=== PATIENT | female | born 1955 | race Caucasian/White ===

== ENCOUNTER 2024-05-17 11:10 | Outpatient (AMB) | payer BC, SELFPAY ==
--- NOTE | 2024-05-17 11:36 | A.OFFPC_ITS ---
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 Required: No Allergies codeine Allergy (Unknown, Verified 05/17/24 11:36) Unknown Medication List - Last Reconciled 05/17/24 by Lotus Freed MD atorvastatin 80 mg PO DAILY diazepam (Valium) 5 mg PO BEDTIME PRN levocetirizine 5 mg PO DAILY valacyclovir (Valtrex) 1,000 mg PO DAILY Tobacco use date assessed: 05/17/24 Fall risk assessment: No Falls in past year Last assessed Fall Risk: 05/17/24 Dental Screening Dental Screen Date: 05/17/24 Did you have a dental visit in the last 12 months?: Yes Did you have a dental problem in the last 6 months where you did not have access to dental care?: No Was dental information given to patient?: Patient has dentist HPI HPI Comments History of Present Illness Details The patient is a 68 year old female with a past medical history of hyperlipidemia, anxiety, hsv, low back/hip pain presenting for follow up MSK: Low back/buttock/hip injury following axe throwing. Baseline low back pain prior. Had MRI-bilateral labral tears, lumbar DDD. Saw physiatry Dr Iqbal. Saw [facility] then [facility]. Dr Roberts though pain more from gluteus medius tendinopathy. Got prp injection with some relief. Continues prn tramadol. Recently having pain from left lower neck down arm. Only at night. Non exertional. BH: Anxiety/insomnia-On valium as needed. Been on for many years. The only thing that has afforded her relief. CV: continues lipitor for hyperlipidemia HSV: on valtrex ROS CONSTITUTIONAL: Denies weight loss, fever and chills. HEENT: Denies changes in vision and hearing. RESPIRATORY: Denies SOB and cough. CV: Denies palpitations and CP GI: Denies abdominal pain, nausea, vomiting and diarrhea. : Denies dysuria and urinary frequency. MSK: see HPI SKIN: non healing skin lesion nose NEUROLOGICAL: Denies headache PSYCHIATRIC: Denies recent changes in mood. PHYSICAL EXAM: GENERAL: Alert and oriented x 3. NAD EYES: EOMI. Anicteric. HENT: Moist mucous membranes. No scleral icterus. No cervical lymphadenopathy. LUNGS: Clear to auscultation bilaterally. CARDIOVASCULAR: Regular rate and rhythm. No murmur. No JVD. ABDOMEN: Soft, non-tender +bs EXTREMITIES: No edema. Non-tender. SKIN: Reddish rough patch nose NEUROLOGIC: No focal neurological deficits. CN II-XII grossly intact PSYCHIATRIC: Cooperative. 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 Current occupational exposures/hazards: No Cognitive needs: No Hearing needs: No Vision needs: Yes Physical exam (Primary Care) Vital Signs: Last Vital Signs Temp 98.4 F 05/17/24 11:41 Pulse 69 05/17/24 11:41 Resp 14 05/17/24 11:41 BP 124/86 05/17/24 11:41 Pulse Ox 96 05/17/24 11:41 Oxygen Delivery Method Room Air 05/17/24 11:41 BMI result Body Mass Index 28.4 Tobacco/Smoking Status: Tobacco use Status Tobacco use date assessed 05/17/24 05/17/24 11:45 Patient Tobacco Use Status Former Tobacco user 05/17/24 11:45 e-Cigarette/Vaping Use Never Used 05/17/24 11:45 Assessment and Plan Assessment & Plan (1) Skin lesion: Code(s): L98.9 - Disorder of the skin and subcutaneous tissue, unspecified Plan: started after significant sun exposure. Non healing x 2 years. Referral for evaluation/biopsy (2) Hyperlipidemia: Code(s): E78.5 - Hyperlipidemia, unspecified Qualifiers: Hyperlipidemia type: mixed hyperlipidemia Qualified Code(s): E78.2 - Mixed hyperlipidemia (3) Cervical radiculopathy: Code(s): M54.12 - Radiculopathy, cervical region (4) Lumbar degenerative disc disease: Code(s): M51.36 - Other intervertebral disc degeneration, lumbar region (5) Tendinopathy of gluteus medius: Code(s): M67.959 - Unspecified disorder of synovium and tendon, unspecified thigh Orders: Referrals Dermatology Referral L98.9 - Disorder of the skin and subcutaneous tissue, unspecified Medications: New diazepam (Valium) 10 mg (2 x 5 mg) PO BEDTIME 30 days PRN 60 tabs 0RF muscle spasm Coding Level of Care Code Est Pt Level 5 (70436) Diagnoses Skin lesion L98.9 Mixed hyperlipidemia E78.2 Hyperlipidemia type: mixed hyperlipidemia Cervical radiculopathy M54.12 Lumbar degenerative disc disease M51.36 Tendinopathy of gluteus medius M67.959 Time Spent (min) 47
[2024-05-17 11:41] VITALS: BP 124/86; PULSE 69; RESP 14; TEMP 36.9; O2SAT 96; BMI 28.4
== END 2024-05-17 12:36 | disposition home or self-care (01) ==
PROVIDERS: PCP Internal Medicine; Visit Provider Internal Medicine
DX: E78.2 Mixed hyperlipidemia (principal); L98.9 Disorder of the skin and subcutaneous tissue, unspecified; M54.12 Radiculopathy, cervical region; M51.36 Other intervertebral disc degeneration, lumbar region; M67.959 Unspecified disorder of synovium and tendon, unspecified thigh
CPT/HCPCS: 99215

== ENCOUNTER 2024-11-04 14:49 | Outpatient (AMB) | payer BC, SELFPAY ==
--- NOTE | 2024-11-04 14:53 | MHC.PC.OV ---
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 Her heart is racing and beating out of her chest. This has last for hours at times. Over this past weekend she went on a brisk walk experience this and then ended up developing chest pain and diaphoresis. She thought about going to the ER but symptoms started subsiding after she rested for a half hour. MSK: Low back/buttock/hip injury following axe throwing. Baseline low back pain prior. Had MRI-bilateral labral tears, lumbar DDD. Saw physiatry Dr Iqbal. Saw [facility] then [facility]/ortho. Dr Roberts though pain more from gluteus medius tendinopathy. Got prp injection with some relief. Continues prn tramadol. Recently having pain from left lower neck down arm. Only at night. Non exertional. Taking glucosamine, chondroiton BH: Anxiety/insomnia-On valium as needed. Been on for many years. The only thing that has afforded her relief. CV: continues lipitor for hyperlipidemia HSV: on valtrex. Needs refill Colon cancer:Had cologuard within the last 3 years Mammo: Gets at [facility]. She is due ROS see HPI PHYSICAL EXAM: GENERAL: Alert and oriented x 3. NAD EYES: EOMI. Anicteric. HENT: Moist mucous membranes. No scleral icterus. No cervical lymphadenopathy. LUNGS: Clear to auscultation bilaterally. CARDIOVASCULAR: Regular rate and rhythm. No murmur. No JVD. ABDOMEN: Soft, non-tender +bs EXTREMITIES: No edema. Non-tender. SKIN: Reddish rough patch nose NEUROLOGIC: No focal neurological deficits. CN II-XII grossly intact PSYCHIATRIC: Cooperative. 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 Current occupational exposures/hazards: No Cognitive needs: No Hearing needs: No Vision needs: Yes Questionnaire Thrive Questionnaire Date Thrive assessed: 10/30/24 I am a: Patient What is your living situation today?: I have a steady place to live Within the past 12 months, did the food you bought not last and you didn't have the money to get more?: Never true Within the past 12 months, did you worry whether your food would run out before you got money to buy more?: Never true Do you have trouble paying for medicines?: No Do you have trouble getting transportation to medical appointments?: No Do you have trouble paying your heating and electricity bill?: No Do you have trouble taking care of your child, family member or friend?: No Do you have trouble with day-to-day activities such as bathing, preparing meals, shopping, managing finances, etc.?: No Are you currently unemployed and looking for a job?: No Are you interested in more education?: No Please select the resources that you would like help with: None Currently or been in a relationship where the following occur: No concerns reported THRIVE Score: 0 AUDIT C Alcohol Use Questionnaire (AUDIT-C) 1. How often do you have a drink containing alcohol?: Never 3. How often do you have six or more drinks on one occasion?: Never Total Score: 0 TING-7 AMB Questionnaire TING-7 Date TING - 7 assessed: 11/04/24 Feeling nervous, anxious, or on edge: 1 = Several days Not being able to stop or control worryin = Several days Worrying too much about different things: 1 = Several days Trouble relaxin = Not at all Being so restless that it is hard to sit still: 0 = Not at all Becoming easily annoyed or irritable: 1 = Several days Feeling afraid as if something awful might happen: 0 = Not at all Total TING-7 score (0-4 normal; 5-9 mild; 10-14 moderate; 15-21 severe): 4 Source: Developed by Drs. Armando Carmona, Marce Elliott, Flo Emery and colleagues, with an educational spencer from [employer]. TING-7 Assessment Billing TING-7 Assessment Tool: TING-7 Assessment 06919 Physical exam (Primary Care) Vital Signs: Last Vital Signs Pulse 70 11/04/24 15:00 BP 112/78 11/04/24 15:00 Pulse Ox 99 11/04/24 15:00 Oxygen Delivery Method Room Air 11/04/24 15:00 BMI result Body Mass Index 33.4 Tobacco/Smoking Status: Tobacco use Status Tobacco use date assessed 05/17/24 11/04/24 15:06 Patient Tobacco Use Status Former Tobacco user 11/04/24 15:06 e-Cigarette/Vaping Use Never Used 11/04/24 15:06 Thrive Assessment: Date of Thrive Assessment Date Thrive assessed 10/30/24 11/04/24 15:06 Currently or been in a relationship where the following occur: No concerns reported Coding Level of Care Code Est Pt Prev Care >65y(82923) Diagnoses Physical exam Z00.00 Chest pain R07.9 Palpitations R00.2 Degeneration of intervertebral disc of lumbar region with discogenic back pain and lower extremity pain M51.362 Disc-related pain type: discogenic back pain and lower extremity pain Additional Codes TING-7 Assessment Billing - TING-7 Assessment Tool: TING-7 Assessment 27700 ([id number]) Assessment & Plan Assessment & Plan (1) Physical exam: Code(s): Z00.00 - Encounter for general adult medical examination without abnormal findings Category: Medical Plan: Preventive measures reviewed Mammogram order given to patient Check cologuard date (2) Chest pain: Code(s): R07.9 - Chest pain, unspecified Category: Medical Plan: Exertional chest pain-stress testing ordered Referral to cardiology (3) Palpitations: Code(s): R00.2 - Palpitations Category: Medical Plan: EKG performed Monitor ordered x 48 hours Referral to cardiology Stress testing (4) Lumbar degenerative disc disease: Code(s): M51.36 - Other intervertebral disc degeneration, lumbar region Category: Medical Qualifiers: Disc-related pain type: discogenic back pain and lower extremity pain Qualified Code(s): M51.362 - Other intervertebral disc degeneration, lumbar region with discogenic back pain and lower extremity pain Plan: stable on current medications Orders: Orders AMB EKG-In Office 11/04/24 R00.2 - Palpitations, R07.9 - Chest pain, unspecified ECG holter monitor 48 hour 11/04/24 R00.2 - Palpitations, R07.9 - Chest pain, unspecified NM cardiolite stress test 11/04/24 R00.2 - Palpitations, R07.9 - Chest pain, unspecified MM screening mammo BI 11/04/24 Z12.31 - Encounter for screening mammogram for malignant neoplasm of breast Referrals Cardiology Referral R00.2 - Palpitations, R07.9 - Chest pain, unspecified Medications: New valacyclovir (Valtrex) 1,000 mg PO DAILY 90 tabs 3RF metoprolol tartrate 12.5 mg (1/2 x 25 mg) PO BID PRN 30 tabs 0RF tachycardia
[2024-11-04 15:00] VITALS: BP 112/78; PULSE 70; O2SAT 99; BMI 33.4
== END 2024-11-04 16:03 | disposition home or self-care (01) ==
PROVIDERS: PCP Internal Medicine; Visit Provider Internal Medicine
DX: Z00.00 Encounter for general adult medical examination without abnormal findings (principal); R07.9 Chest pain, unspecified; R00.2 Palpitations; M51.362 Other intervertebral disc degeneration, lumbar region with discogenic back pain and lower extremity pain

== ENCOUNTER → 2024-11-25 09:06 | Outpatient (REF) | payer BC, SELFPAY ==
--- NOTE | 2024-11-25 09:15 | CA_ITS ---
Acquisition Time: 2024-11-25 09:31:57 Total Exercise Time: 00:08:11 Test Indications: CHEST PAIN Medications: METROP[place]OL Protocol: JOSIAH Max HR: 114 BPM 75% of Pred: 152 BPM Max BP: 152/090 mmHG Max Work Load: 6.3 METS Exercise Stress Test with exercise 8 mins 11 secs of Josiah Protocol, required modified speed to 2mph, able to increase incline to 14%, achieving 73% MPHR, without any chest discomfort, reported moderate SOB, with isolated PAC and isolated PVC, with baseline hypertension - normal response to exercise. Without EKG changes. In recovery, breathing returned to baseline. Recommend further testing with Pharmacologic Nuclear Stress Test with Lexiscan. Test reviewed with Dr. Fitzpatrick. Referred By: Lotus Freed Overread By: Bg Olson
== END ==
LOC: HO.CARD 09:06
PROVIDERS: PCP Internal Medicine; Visit Provider Internal Medicine
DX: R07.9 Chest pain, unspecified (principal); R00.2 Palpitations
CPT/HCPCS: 93017; 93225

== ENCOUNTER → 2024-11-25 09:15 | Outpatient (BNV) | payer BC, SELFPAY | PROVIDERS: PCP Internal Medicine | DX: R06.02 Shortness of breath (principal); I49.1 Atrial premature depolarization; I49.3 Ventricular premature depolarization | CPT/HCPCS: 93016; 93018 ==

== ENCOUNTER 2024-12-02 10:22 | Outpatient (AMB) | payer BC, SELFPAY ==
--- NOTE | 2024-12-02 10:31 | MHC.PC.OV ---
Vital Signs 12/02/24 11:12 Height 5 ft 6.54 in Weight 206 lb 8 oz BMI 32.8 BP 132/88 Blood Pressure Location Lt brachial Position Sitting Pulse 64 Pulse Source Pulse Oximeter Pulse Oximetry (%) 99 Oxygen Delivery Method Room Air Intake Visit Reasons: Pre-OP /Eye surgery Intake Note: Pre op cataract Odd Ticket Clerk Required: No Allergies codeine Allergy (Unknown, Verified 12/02/24 11:12) Unknown Tobacco use date assessed: 12/02/24 Dental Screening Dental Screen Date: 05/17/24 HPI HPI Comments History of Present Illness Details The patient is a 68 year old female with a past medical history of hyperlipidemia, anxiety, hsv, low back/hip pain presenting for physical exam Upcoming cataract surgery-12/16/23-left, 12/30/23-right. In October she was having episodes of tachycardia associated with shortness of breath for ~3 weeks. Has not had any recent significant episodes. Her heart is racing and beating out of her chest. This has last for hours at times. Over this past weekend she went on a brisk walk experience this and then ended up developing chest pain and diaphoresis. She thought about going to the ER but symptoms started subsiding after she rested for a half hour. She had EKG performed and was sent for stress test. The stress test did not show any signs of ischemia but was suboptimal as patient couldnt reach max target HR. She is active walks, gardens, climbs multiple flights of stairs. No known sleep apnea No copd, asthma or jeanine METS>4 No diabetes or kidney disease MSK: Low back/buttock/hip injury following axe throwing. Baseline low back pain prior. Had MRI-bilateral labral tears, lumbar DDD. Saw physiatry Dr Iqbal. Saw [facility] then [facility]. Dr Roberts though pain more from gluteus medius tendinopathy. Got prp injection with some relief. Continues prn tramadol. Recently having pain from left lower neck down arm. Only at night. Non exertional. Taking glucosamine, chondroiton BH: Anxiety/insomnia-On valium as needed. Been on for many years. The only thing that has afforded her relief. HSV: on valtrex. Needs refill Colon cancer:Had cologuard within the last 3 years Mammo: Gets at [facility]. She is due ROS see HPI PHYSICAL EXAM: GENERAL: Alert and oriented x 3. NAD EYES: EOMI. Anicteric. HENT: Moist mucous membranes. No scleral icterus. No cervical lymphadenopathy. LUNGS: Clear to auscultation bilaterally. CARDIOVASCULAR: Regular rate and rhythm. No murmur. No JVD. ABDOMEN: Soft, non-tender +bs EXTREMITIES: No edema. Non-tender. SKIN: Reddish rough patch nose NEUROLOGIC: No focal neurological deficits. CN II-XII grossly intact PSYCHIATRIC: Cooperative. 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 Current occupational exposures/hazards: No Cognitive needs: No Hearing needs: No Vision needs: Yes Questionnaire Thrive Questionnaire Date Thrive assessed: 11/26/24 I am a: Patient What is your living situation today?: I have a steady place to live Within the past 12 months, did the food you bought not last and you didn't have the money to get more?: Never true Within the past 12 months, did you worry whether your food would run out before you got money to buy more?: Never true Do you have trouble paying for medicines?: No Do you have trouble getting transportation to medical appointments?: No Do you have trouble paying your heating and electricity bill?: No Do you have trouble taking care of your child, family member or friend?: No Do you have trouble with day-to-day activities such as bathing, preparing meals, shopping, managing finances, etc.?: No Are you currently unemployed and looking for a job?: No Are you interested in more education?: No Please select the resources that you would like help with: None Currently or been in a relationship where the following occur: No concerns reported THRIVE Score: 0 AUDIT C Alcohol Use Questionnaire (AUDIT-C) 1. How often do you have a drink containing alcohol?: Never 3. How often do you have six or more drinks on one occasion?: Never Total Score: 0 TING-7 AMB Questionnaire TING-7 Date TING - 7 assessed: 11/04/24 Feeling nervous, anxious, or on edge: 0 = Not at all Not being able to stop or control worryin = Not at all Worrying too much about different things: 0 = Not at all Trouble relaxin = Not at all Being so restless that it is hard to sit still: 0 = Not at all Becoming easily annoyed or irritable: 1 = Several days Feeling afraid as if something awful might happen: 0 = Not at all Total TING-7 score (0-4 normal; 5-9 mild; 10-14 moderate; 15-21 severe): 1 Source: Developed by Drs. Armando Carmona, Marce Elliott, Flo Emery and colleagues, with an educational spencer from [employer]. Physical exam (Primary Care) Vital Signs: Last Vital Signs Pulse 64 12/02/24 11:12 BP 132/88 12/02/24 11:12 Pulse Ox 99 12/02/24 11:12 Oxygen Delivery Method Room Air 12/02/24 11:12 BMI result Body Mass Index 32.8 Tobacco/Smoking Status: Tobacco use Status Tobacco use date assessed 12/02/24 12/02/24 11:13 Patient Tobacco Use Status Former Tobacco user 12/02/24 10:32 e-Cigarette/Vaping Use Never Used 12/02/24 10:32 Thrive Assessment: Date of Thrive Assessment Date Thrive assessed 11/26/24 12/02/24 10:32 Currently or been in a relationship where the following occur: No concerns reported Coding Level of Care Code Est Pt Level 4 (37857) Diagnoses Preoperative cardiovascular examination Z01.810 Assessment & Plan Assessment & Plan (1) Preoperative cardiovascular examination: Code(s): Z01.810 - Encounter for preprocedural cardiovascular examination Category: Medical Plan: Patient is average risk for low risk surgery She was experiencing some chest discomfort shortness of breath and palpitations around the holiday. I am going to send her for pharmacologic stress test but surgery does not have to be held back for this
[2024-12-02 11:12] VITALS: BP 132/88; PULSE 64; O2SAT 99; BMI 32.8
== END 2024-12-02 11:41 | disposition home or self-care (01) ==
PROVIDERS: PCP Internal Medicine; Visit Provider Internal Medicine
DX: Z01.810 Encounter for preprocedural cardiovascular examination (principal)

== ENCOUNTER → 2024-12-02 10:22 | Outpatient (BNVA) | payer BC, SELFPAY | PROVIDERS: PCP Internal Medicine; Visit Provider Internal Medicine ==

== ENCOUNTER 2024-12-16 07:28 | Day surgery (SDC) | payer BC, SELFPAY ==
[2024-12-12 07:03] VITALS: BMI 33.2
--- NOTE | 2024-12-12 13:29 | P.CONAN_ITS ---
Documented by User: Makayla Gillespie NP 12/12/24 13:30 HPI - Anesthesia Eval Consult details Narrative: 69yo F for Left Cataract Extraction IOL Insertion No previous cataract on record Pending Nuc Stress but not prohibative of surgery per PCP clear. (Exercise stress without ischemic changes, but did not meet max HR) [facility] Active Problems Active Problems: All Active Problems Preoperative cardiovascular examination (Acute) Physical exam (Acute) Chest pain (Acute) Palpitations (Acute) Vision impairment (Acute) Cataract (Acute) Tendinopathy of gluteus medius (Acute) Lumbar degenerative disc disease (Acute) Cervical radiculopathy (Acute) Hyperlipidemia (Acute) Skin lesion (Acute) Past Medical History Medical History Heart palpitations Asthma Back pain HSV (herpes simplex virus) infection Anxiety Social History Social History Housing: Condominium Are you a primary pediatric critical care nurse to a significant other at home: No Do you presently have visiting nurse or other home services: No Alcohol intake: current Alcohol intake frequency: a few times a month Patient Tobacco Use Status: Former Tobacco user Tobacco use type: Cigarette Cigarette Packs Per Day: 2 Years Smoked: 15 e-Cigarette/Vaping Use: Never Used Second Hand Smoke Exposure: No Use of substances other than those prescribed or required for medical reasons: No Are you DNR?: No Advance Directives: No Advance Directives Information Provided: Yes Advance Directives on File: No Patient : No : No service: No Current occupational status: employed and retired 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 Current occupational exposures/hazards: No Cognitive needs: No Hearing needs: No Vision needs: Yes Meds Allergies Allergy/AdvReac Type Severity Reaction Status Date / Time codeine Allergy Severe Stomach Verified 12/16/24 08:55 Upset Home Medications ?Medication ?Instructions ?Recorded ?Confirmed ?Last Taken ?Type levocetirizine 5 mg tablet 5 mg PO DAILY 05/17/24 05/17/24 Unknown History cholecalciferol (vitamin D3) PO 11/04/24 Unknown History glucosamine-chondroitin 1 tab PO DAILY 11/04/24 12/12/24 Unknown History Exam Height,Weight and Vital Signs: Height 5 ft 6 in Weight 93.44 kg Assessment and Plan Assessment Anesthesia Assessment: Chart Reviewed Documented by User: Merry Burgos MD 12/16/24 09:10 PMFSH Past Medical History Medical History Heart palpitations Asthma Back pain HSV (herpes simplex virus) infection Anxiety Family History Family history of problems with anesthesia: No Surgical History History of Problems with Anesthesia: No Social History Social History [facility]: [facility] Are you a primary pediatric critical care nurse to a significant other at home: No Do you presently have visiting nurse or other home services: No Alcohol intake: current Alcohol intake frequency: a few times a month Patient Tobacco Use Status: Former Tobacco user Tobacco use type: Cigarette Cigarette Packs Per Day: 2 Years Smoked: 15 e-Cigarette/Vaping Use: Never Used Second Hand Smoke Exposure: No Use of substances other than those prescribed or required for medical reasons: No Are you DNR?: No Advance Directives: No Advance Directives Information Provided: Yes Advance Directives on File: No Patient : No : No service: No Current occupational status: employed and retired 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 Current occupational exposures/hazards: No Cognitive needs: No Hearing needs: No Vision needs: Yes Meds Allergies Allergy/AdvReac Type Severity Reaction Status Date / Time codeine Allergy Severe Stomach Verified 12/16/24 08:55 Upset Home Medications ?Medication ?Instructions ?Recorded ?Confirmed ?Last Taken ?Type levocetirizine 5 mg tablet 5 mg PO DAILY 05/17/24 05/17/24 Unknown History cholecalciferol (vitamin D3) PO 11/04/24 Unknown History glucosamine-chondroitin 1 tab PO DAILY 11/04/24 12/12/24 Unknown History Exam Airway Mallampati Class: II TM Dist: >3cm Lungs: cta Assessment and Plan Assessment Anesthesia Assessment: Anesthesia Plan Discussed Final Anesthetic Review Family History of Problems with Anesthesia: No History of Problems with Anesthesia: No NPO: Yes ASA Class: II Final Preanesthetic Review: No Changes in Pt Med Stat, Meds/Allgs Chart Reviewed, Consent Obtained/Reviewed and Anes Risks/Benef Reviewed Patient Risk: Low Procedure Risk: Low Anesthetic Plan Anesthetic Plan: MAC: Disposition: Standard PACU
[2024-12-16] MEDS: Tetracaine HCl/PF 0.5% Oph Sol 4 ML DROPS 1 DROP EYE-LEFT (09:00)
[2024-12-16] MEDS: Tropicamide 1 % Ophth Sol 3 ML BTL 1 DROP EYE-LEFT ×3 (09:02→09:10)
[2024-12-16] MEDS: Cyclopentolate 1 % Ophth Sol 2 ML DRPBTL 1 DROP EYE-LEFT ×3 (09:02→09:09)
[2024-12-16] MEDS: Ketorolac Tromethamine 0.5% Op 10 ML DROPS 1 DROP EYE-LEFT ×3 (09:03→09:10)
[2024-12-16] MEDS: Phenylephrine HCL 2.5% Oph SoL 2 ML BOTTLE 1 DROP EYE-LEFT ×3 (09:03→09:10)
[2024-12-16] MEDS: Lactated Ringers 500 ML 50 ML IV (09:11)
--- NOTE | 2024-12-16 09:37 | MHC.SHP ---
Pre-Procedural Eval Section A - 24 Hr Update-Section A only Date of Service: 12/16/24 The patient is an INPATIENT: No Changes since office visit: No Cold of Flu in the past 2 weeks, No New Medical Problems, No Changes in Medication and No Patient answered all questions The patient has been examined within 24 hours of the surgical procedure. The History & Physical has been completed within 30 days and I have reviewed it.: Yes Section B - Complete if H&P > 30 days Chief Complaint: Age-related nuclear cataract, left eye Allergies: Allergies Allergy/AdvReac Type Severity Reaction Status Date / Time codeine Allergy Severe Stomach Verified 12/16/24 08:55 Upset Plan Diagnosis/Plan: Unchanged I have reviewed the history and physical and performed a pertinent physical examination on my patient. No changes have occurred unless specified. Time Spent With Patient Time: Total time managing care of this patient today ____ minutes.
--- NOTE | 2024-12-16 09:38 | HO.PNOPHT ---
Ophthalmology Procedure Procedure Date of Service: 12/16/24 Ophthalmology Viscoelastic: Healon Duet Dual Pack Pro Ophthalmology Lenses: IOL Acrysof MP - [id number] (19) Procedure Notes: PREOPERATIVE DIAGNOSIS: Decreased visual acuity left eye secondary to cataract POSTOPERATIVE DIAGNOSIS: Same PROCEDURE: Left cataract extraction with intraocular lens insertion SURGEON: Mitch Bradford M.D. ANESTHESIA: Topical/MAC ESTIMATED BLOOD LOSS: None COMPLICATIONS: None After obtaining informed consent, the patient was brought to the operation room suite and placed in the supine position. After adequate sedation per anesthesia, topical drops of Tetracaine were given to the left eye. The eye was then prepped and draped in the usual sterile fashion. The operating room microscope was then positioned over the operative eye and a lid speculum placed. A paracentesis was created. Viscoelastic was then instilled into the anterior chamber. A three plane incision was then created temporally, utilizing a 2.85 mm keratome. Capsulotomy forceps were then utilized to create a circular tear capsulotomy. Hydrodissection and hydrodelineation were carried out until adequate mobilization of the nucleus occurred. Phacoemulsification was then utilized to remove the dense central nucleus followed by removal of the cortical material utilizing the automated aspiration irrigation unit. Viscoat elastic was instilled into the posterior capsular bag followed by placement of a posterior chamber intraocular lens without difficulty. The residual Viscoat elastic was then removed utilizing the automated IA machine. The wound was check and found to be watertight. The patient tolerated the procedure well and the lid speculum was removed. Intracameral injection of Vigamox 0.1 mL followed by a subtenon injection of Kenalog-40 0.2 mL were administered. The patient will be seen in the a.m.
[2024-12-16 10:04] VITALS: BP 155/86; PULSE 62; RESP 16; TEMP 36.1; O2SAT 97
== END 2024-12-16 10:07 | disposition home or self-care (01) ==
PROVIDERS: PCP Internal Medicine; Visit Provider Ophthalmology
PROC: (CPT 66985; principal; 2024-12-16 10:00)
DX: H25.12 Age-related nuclear cataract, left eye (principal); H54.7 Unspecified visual loss; Z83.511 Family history of glaucoma; H35.09 Other intraretinal microvascular abnormalities; H18.413 Arcus senilis, bilateral; J45.909 Unspecified asthma, uncomplicated; E78.5 Hyperlipidemia, unspecified; R00.2 Palpitations; F41.9 Anxiety disorder, unspecified; Z79.899 Other long term (current) drug therapy; Z88.5 Allergy status to narcotic agent; Z87.891 Personal history of nicotine dependence
CPT/HCPCS: 66984; J2250; J3301; V2630

== ENCOUNTER 2024-12-30 07:34 | Day surgery (SDC) | payer BC, SELFPAY ==
[2024-12-12 07:34] VITALS: BMI 33.2
--- NOTE | 2024-12-26 13:07 | HO.ANESPROP2 ---
Documented by User: Makayla Gillespie NP 12/26/24 13:07 HPI - Anesthesia Eval Consult details Narrative: 69yo F for Right Cataract Extraction IOL Insertion Left eye 12/16/24: Midaz 3 PMFSH Active Problems Active Problems: All Active Problems Abnormal stress test (Acute) Preoperative cardiovascular examination (Acute) Physical exam (Acute) Chest pain (Acute) Palpitations (Acute) Vision impairment (Acute) Cataract (Acute) Tendinopathy of gluteus medius (Acute) Lumbar degenerative disc disease (Acute) Cervical radiculopathy (Acute) Hyperlipidemia (Acute) Skin lesion (Acute) Past Medical History Medical History Cataract Heart palpitations Asthma Back pain HSV (herpes simplex virus) infection Anxiety Family History Family history of problems with anesthesia: No Surgical History Surgical History Hx of left cataract extraction (12/16/24) History of Problems with Anesthesia: No Social History Social History Housing: [facility] Are you a primary acute care registered nurse to a significant other at home: No Do you presently have visiting nurse or other home services: No Alcohol intake: current Alcohol intake frequency: a few times a month Patient Tobacco Use Status: Former Tobacco user Tobacco use type: Cigarette Cigarette Packs Per Day: 2 Years Smoked: 15 e-Cigarette/Vaping Use: Never Used Second Hand Smoke Exposure: No Are you DNR?: No Advance Directives: No Advance Directives Information Provided: Yes Advance Directives on File: No Recently lost weight without trying: No Eating poorly because of decreased appetite: No Nutrition Risks: No Nutritional Risk Patient : No : No service: No Current occupational status: employed and retired 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 Current occupational exposures/hazards: No Cognitive needs: No Hearing needs: No Vision needs: Yes Meds Allergies Allergy/AdvReac Type Severity Reaction Status Date / Time codeine Allergy Severe Stomach Verified 12/30/24 08:35 Upset Home Medications ?Medication ?Instructions ?Recorded ?Confirmed ?Last Taken ?Type levocetirizine 5 mg tablet 5 mg PO DAILY 05/17/24 05/17/24 Unknown History cholecalciferol (vitamin D3) PO 11/04/24 Unknown History glucosamine-chondroitin 1 tab PO DAILY 11/04/24 12/12/24 Unknown History Exam Height,Weight and Vital Signs: Height 5 ft 6 in Weight 93.44 kg Assessment and Plan Assessment Anesthesia Assessment: Chart Reviewed Final Anesthetic Review Family History of Problems with Anesthesia: No History of Problems with Anesthesia: No Documented by User: Kandy Leon MD 12/30/24 09:31 [facility] Past Medical History Medical History Cataract Heart palpitations Asthma Back pain HSV (herpes simplex virus) infection Anxiety Surgical History Surgical History Hx of left cataract extraction (12/16/24) Social History Social History Housing: Condominium Are you a primary acute care registered nurse to a significant other at home: No Do you presently have visiting nurse or other home services: No Alcohol intake: current Alcohol intake frequency: a few times a month Patient Tobacco Use Status: Former Tobacco user Tobacco use type: Cigarette Cigarette Packs Per Day: 2 Years Smoked: 15 e-Cigarette/Vaping Use: Never Used Second Hand Smoke Exposure: No Are you DNR?: No Advance Directives: No Advance Directives Information Provided: Yes Advance Directives on File: No Recently lost weight without trying: No Eating poorly because of decreased appetite: No Nutrition Risks: No Nutritional Risk Patient : No : No service: No 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 occupational status: employed and retired 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 Current occupational exposures/hazards: No Cognitive needs: No Hearing needs: No Vision needs: Yes Meds Allergies Allergy/AdvReac Type Severity Reaction Status Date / Time codeine Allergy Severe Stomach Verified 12/30/24 08:35 Upset Home Medications ?Medication ?Instructions ?Recorded ?Confirmed ?Last Taken ?Type levocetirizine 5 mg tablet 5 mg PO DAILY 05/17/24 05/17/24 Unknown History cholecalciferol (vitamin D3) PO 11/04/24 Unknown History glucosamine-chondroitin 1 tab PO DAILY 11/04/24 12/12/24 Unknown History Exam Airway Mallampati Class: II TM Dist: >3cm Neck ROM: Full Loose/Missing/Broken Teeth: No Heart: RRR Lungs: CTA Assessment and Plan Assessment Anesthesia Assessment: Anesthesia Plan Discussed Final Anesthetic Review NPO: Yes ASA Class: II Final Preanesthetic Review: Meds/Allgs Chart Reviewed, Consent Obtained/Reviewed and Anes Risks/Benef Reviewed Patient Risk: Low Procedure Risk: Low Anesthetic Plan Anesthetic Plan: MAC: Disposition: Standard PACU
--- OUTSIDE RECORDS SUMMARY | 2024-12-30 07:36 | XMS_ITS | Clinical Summary ---
Author Organization [address] [place] [address] [place] [phone] Phone Care Team Providers Care Business Intelligence Reporting Analyst Name Role Phone Lotus Freed MD Primary Care Provider Allergies Active Allergy Reactions Criticality Noted Date Comments Codeine Nausea And Vomiting High 09/01/2016 Latex 09/01/2016 Medications atorvastatin (LIPITOR) 80 mg tablet Take 1 Tab by mouth daily. 1 Active diazePAM (VALIUM) 5 mg tablet Take 1 Tab by mouth daily as needed for Anxiety. 1 Active levocetirizine (XYZAL) 5 mg tablet Take 1 Tab by mouth daily as needed for Allergies (allergy symptoms). 0 Active sulindac (CLINORIL) 200 mg tablet TAKE 1 TABLET BY MOUTH TWICE A DAY WITH FOOD OR MILK 9 Active valACYclovir (VALTREX) 1 gram tablet Take 1 Tab by mouth daily. 0 Active ergocalciferol (VITAMIN D-2) 1,250 mcg (50,000 unit) capsule Take 1 capsule by mouth once a week. 9 Active Hospital, Clinic, or Other Facility Administered Medication Ordered Dose Route Frequency Start Date End Date Status TC-99M tetrofosmin P radio-isotope injection 10.3 millicurie 10.3 millicurie IV Once in imaging 12/24/2024 12/24/2024 Ende d TC-99M tetrofosmin P radio-isotope injection 29.3 millicurie 29.3 millicurie IV Once in imaging 12/24/2024 12/24/2024 Ende d regadenoson (LEXISCAN) injection 0.4 mg 0.4 mg IV Once in imaging 12/24/2024 12/24/2024 End ed aminophylline injection 75 mg 75 mg IV Once in imaging 12/24/2024 12/24/2024 Ende d Active Problems Problem Noted Date Diagnosed Date Elevated BP without diagnosis of hypertension Cyst of left kidney 05/01/2017 Overview (12/18/2024): Noted on MRI 01/2017, future imaging ordered for 07/2017 Insomnia 11/03/2016 Depression 09/01/2016 HSV infection 09/01/2016 Hypercholesteremia 09/01/2016 Urinary incontinence 09/01/2016 Encounters Date Type Department Care Team Description 12/24/2024 12:00 PM EST Ancillary Procedure [facility] [address] [facility] [address] [place] [id number] Chest pain; Abnormal EKG; Abnormal result of other cardiovascular function study from Last 3 Months Immunizations Name Administration Dates Next Due Influenza trivalent, with pr eservative (Fluzone; Afluria) 6mo and older 07/29/2019 Surgical History Surgery Date Site/Laterality Comments OTHER SURGICAL HISTORY PROCEDURE: MO ANTERIOR COLPORRAPHY RPR CYSTOCELE W/CYSTO; COMMENT: x 2 OOPHORECTOMY PROCEDURE: HISTORICAL OOPHORECTOMY OTHER SURGICAL HISTORY PROCEDURE: MO REPAIR RECTOCELE SEPARATE PROCEDURE OTHER SURGICAL HISTORY PROCEDURE: HISTORICAL VAGINAL HYSTERECTOMY WITH BSO Medical History Medical History Date Comments Depression 09/01/2016 DX:Depression Urinary incontinence 09/01/2016 DX:Urinary incontinence HSV infection 09/01/2016 DX:HSV infection Hypercholesteremia 09/01/2016 DX:Hyperchole steremia Insomnia 11/03/2016 DX:Insomnia Family History Medical History Relation Name Comments No Known Problems Daughter No Known Problems Father No Known Problems Maternal Grandfather No Known Problems Maternal Grandmother No Known Problems Mother No Known Problems Other No Known Problems Paternal Grandfather No Known Problems Paternal Grandmother No Known Problems Sister Breast cancer Neg Hx Relation Name Status Comments Daughter Father Maternal Grandfather Maternal Grandmother Mother Other Paternal Grandfather Paternal Grandmother Sister Social History Tobacco Use Types Packs/Day Years Used Date Smoking Tobacco: Former Cigarettes Q uit: 09/01/2008 Smokeless Tobacco: Never Alcohol Use Standard Drinks/Week Comments No 0 (1 standard drink = 0.6 oz pur e alcohol) Comments Unknown Sex and Gender Information Value Date Recorded Sex Assigned at Not on file Legal Sex Female 3:21 PM EST Gender Identity Not on file Sexual Orientation Not on file Obstetrics History Last Filed Vital Signs Vital Sign Reading Time Taken Comments Blood Pressure - - Pulse - - Temperature - - Respiratory Rate - - Oxygen Saturation - - Inhaled Oxygen Concentration - - Weight 93 kg (205 lb) 12/24/2024 12:11 PM EST Height 170.2 cm (5' 7 ) 12/24/2024 12:11 PM EST Body Mass Index 32.11 12/24/2024 12:11 PM EST Plan of Treatment Health Maintenance Due Date Last Done Comments Pneumococcal Vaccine: 50+ Years (1 of 2 - PCV) 1962 Zoster Vaccines (1 of 2) 2006 RSV Immunization Patients 60+ Years Old (1 - Risk 60-74 years 1-dose series) 2016 Breast Cancer Screening 05/13/2021 05/13/20 19, 03/17/2018, 03/06/2017 COVID-19 Vaccine ( season) 2024 10/28/2021, 02/26/2021, 02/04/2021 Influenza Vaccine (#1) 2024 , 07/29/2019, 08/28/2018, Additional history exists Cholesterol Screening (Lipid Panel) 12/17/2024 10/03/2019 Colorectal Cancer Screening: Colonoscopy 12/17/2024 04/20/2012 Depression Screening 12/17/2024 Falls Risk Assessment 12/17/2024 Osteoporosis Screening (Bone Density Screening) 12/17/2024 Social Influencers of Health Screening 12/17/2024 DTaP,Tdap,and Td Vaccines (3 - Td or Tdap) 08/03/2025 08/03/2015, 04/24/2009 Hepatitis C Screening Completed 11/03/2016 HIB Vaccines Aged Out No longer eligi ble based on patient's age to complete this topic HPV Vaccines Aged Out No longer eligi ble based on patient's age to complete this topic Hepatitis A Vaccines Aged Out No long er eligible based on patient's age to complete this topic Hepatitis B Vaccines Aged Out No long er eligible based on patient's age to complete this topic IPV Vaccines Aged Out No longer eligi ble based on patient's age to complete this topic MMR Vaccines Aged Out No longer eligi ble based on patient's age to complete this topic Meningococcal ACWY Vaccine Aged Out N o longer eligible based on patient's age to complete this topic RSV Immunization Patients Under 20 months Aged Out No longer eligible based on patient's age to complete this topic Varicella Vaccines Aged Out No longer eligible based on patient's age to complete this topic Procedures Procedure Name Priority Date/Time Associated Diagnosis Comments NM LEXISCAN STRESS TEST W/ MYOCARDIAL PERFUSION Routine 12/24/2024 2:42 PM EST Chest pain Abnormal EKG Abnormal result of other cardiovascular function study LIPID PANEL Routine 10/03/2019 SCR MAMMO BI INCL CAD Routine 05/13/2019 9:08 AM EDT Encounter for screening mammogram for malignant neoplasm of breast HEPATITIS C SCREENING Routine 11/03/2016 COLONOSCOPY Routine 04/20/2012 from Last 3 Months or Most Recently Relevant to Health Maintenance Results * NM LEXISCAN STRESS TEST W/ MYOCARDIAL PERFUSION (12/24/2024 2:42 PM EST) Exercise/inject ion duration (min) 0 CV PACS STRESS Exercise/inject ion duration (sec) 52 CV PACS STRESS Peak SBP 160 mmHg CV PACS STRESS Peak DBP 90 mmHg CV PACS STRESS Peak HR 116 bpm CV PACS STRESS Baseline HR 81 bpm CV PACS STRESS Baseline SBP 164 mmHg CV PACS STRESS Baseline DBP 100 mmHg CV PACS STRESS Estimated workload 1.7 METS CV PACS STRESS Percent HR 76 % CV PACS STRESS Rate Pressure Product 18,560.0 mmHg*bpm CV PACS STRESS Target HR 129 bpm CV PACS STRESS TID 1.15 CV PACS STRESS Nuc Stress EF 63 % CV PAC S STRESS Nuc Rest EF 58 % CV PACS STRESS BSA 2.1 m[address] PACS STRESS [address] Depression (mm) 0 mm CV PACS STRESS Anatomical Region Laterality Modality Nuclear Medicine 12/24/2024 1:03 PM EST 12/24/2024 1:34 PM EST Impressions 12/25/2024 5:42 PM EST 1. ??Abnormal pharmacological nuclear stress test. 2. Symptoms: No chest pain during the regadenoson infusion 3. Stress ECG: No ischemic ECG changes with the regadenoson infusion, in the setting of an abnormal baseline 4. Myocardial perfusion imaging: - Myocardial perfusion imaging revealed a small in size and very mild in intensity reversible perfusion defect in the basal anterolateral wall, suggestive of ischemia. -No evidence of fixed perfusion defects to suggest the presence of an infarct. 5. TID was normal at 1.15. 6. Gated images revealed normal LV wall motion and thickening; with a normal LV systolic function (LVEF 58%). 7. ??There is evidence of coronary artery calcification in the LAD which was noted on the CT scan images obtained for attenuation correction. Narrative 12/25/2024 5:42 PM EST Stress Findings A pharmacological stress test was performed using regadenoson, 0.4 mg IV over 10-15 seconds, followed by radiopharmacological injection 10 seconds post infusion. Total stress time was 0 min and 52 sec. The patient reached the end of the protocol. Low level exercise was used during pharmacological stress test. Reversal medication aminophylline and 75 mg given at minute 2 of recovery. Blood pressure demonstrated a normal response to regadenoson but was elevated at rest- patient anxious. Heart rate demonstrated a normal response. The patient reported dizziness and headaches during the stress test which resolved after aminophylline given. ECG The ECG shows normal sinus rhythm. Non-specific T with abnormalities noted at baseline. There were no arrhythmias during stress. There is no significant ST segment changes during stress, in the setting of an abnormal baseline. There were no arrhythmias during recovery. No significant changes in the setting of an abnormal baseline. Nuclear Study Quality Study technique: MPI, SPECT, multi, rest and stress, 1 day. Overall image quality is good. CT attenuation correction was utilized. No radiopharmaceutical dose was extravasated. The time from injection to rest imaging is 30 mins. The time from injection to stress imaging is 40 mins. Perfusion Defect Conclusion There is no evidence of transient ischemic dilation (TID). Stress Function Comments Left ventricular systolic function post-stress is normal. Stress ejection fraction is 63%. Rest Function Comments Left ventricular function at rest was normal. Resting ejection fraction was 58%. Stress Combined Conclusion SCAN FINDINGS: Nuclear imaging of the left ventricle reveals normal cavity size at rest with no change with stress imaging. Myocardial perfusion imaging of the left ventricle revealed a small in size and very mild in intensity reversible perfusion defect in the basal anterolateral wall. No fixed perfusion defects. Gated SPECT imaging was performed which demonstrated normal LV function and thickening with a calculated LVEF of 58% CT Findings There is evidence of coronary artery calcification in the LAD which was noted on the CT scan images obtained for attenuation correction. Perfusion Scoring Resting Summed Score: 0 Percent Normal: 0.00% The left ventricular perfusion is normal. Perfusion Scoring Stress Summed Score: 1 Percent Normal: 1.47% Mild count reduction in the following segments: basal anterolateral. All other segments are normal. Perfusion Scores: SRS Score: 0 Percentage Abnormal: 0.00% Perfusion Scores: SSS Score: 1 Percentage Abnormal: 1.47% Perfusion Scores: SDS Score: 1 Percentage Abnormal: 1.47% Lotus Freed MD CV STRESS PROCEDURES Final Res ult * (ABNORMAL) Lipid panel (10/03/2019) LDL/HDL Ratio 2 0 - 4 Triglycerides 99 0 - 150 mg/dL Cholesterol 254(A) 0 - 200 mg/dL HDL 113 >=40 mg/dL LDL Cholesterol 122(A) 0 - 100 mg/dL Blood Venous blood specimen / Unknown Historical Provider LAB BLOOD ORDERABLES Sana l Result * SCR MAMMO BI INCL CAD (05/13/2019 9:08 AM EDT) Anatomical Region Laterality Modality Radiographic Julieta ging 03/17/2018 8:16 AM EDT Narrative 05/13/2019 11:03 AM EDT This is a summary report. The complete report is available in the patient's medical record. If you cannot access the medical record, please contact the sending organization for a detailed fax or copy. Full field digital screening mammography, reviewed with CAD and compared to previous. ??The breasts are composed of fatty and fibroglandular tissue. ??No suspicious mass, architectural distortion or suspicious calcifications are identified. IMPRESSION: : No mammographic evidence of malignancy. BIRADS 1-Negative; N. 5 year breast cancer risk assessment 1.2 % Lifetime breast cancer risk assessment 5.7 % Breast cancer risk category Low (<15%) Procedure Note Kenia Davidson MD - 11/08/2022 This is a summary report. The complete report is available in thepatient's medical record. If you cannot access the medical record, pleasecontact the sending organization for a detailed fax or copy. Full field digital screening mammography, reviewed with CAD and comparedto previous. The breasts are composed of fatty and fibroglandular tissue.No suspicious mass, architectural distortion or suspicious calcificationsare identified. IMPRESSION: : No mammographic evidence of malignancy. BIRADS 1-Negative; N. 5 year breast cancer risk assessment 1.2 % Lifetime breast cancer risk assessment 5.7 % Breast cancer risk category Low (<15%) Rita Carlson MD IMG XR PROCEDURES Final Result * Hepatitis C Screening (11/03/2016) Hepatitis C Screening abstracted Historical Provider HEALTH MAINTENANCE Final Result * Colonoscopy (04/20/2012) Colonoscopy no interpretation , abstracted Comment:per pt Anatomical Region Laterality Modality Other [facility] Provider HEALTH MAINTENANCE Final Result from Last 3 Months or Most Recently Relevant to Health Maintenance Insurance MEDICARE [facility] Care Teams Business Intelligence Reporting Analyst Relationship Specialty Start Date End Date Lotus Freed MD PCP - General Endocrinology 12/24/24
--- OUTSIDE RECORDS SUMMARY | 2024-12-30 07:36 | XMS_ITS | Encounter Summary ---
Author Organization [facility] Address [id number] [place] [id number] Care Team Providers Care Program Management Specialist Name Role Phone Lotus Freed MD Primary Care Provider [phone] Reason for Visit * Cardiac Stress Testing (Routine) - Closed Specialty Diagnoses / Procedures Referred By Contac t Referred To Contact Cardiology Diagnoses Chest pain Abnormal EKG Abnormal result of other cardiovascular function study Procedures Exercise nuclear stress test with myocardial perfusion NJ MYOCARDIAL PERFUSION IMAGING TOMOGRAPHIC MULTI STUDIES AT REST OR STRESS NJ MYOCARDIAL PERFUSION IMAGING TOMOGRAPHIC SINGLE STUDY AT REST OR STRESS NJ CARDIOVASCULAR STRESS TEST GLOBAL NJ CV TMST/BIKE MAX/SUBMAX CONTINUOUS ECG MON/PHARM STRESS SUPVSR ONLY NJ CV STRESS TEST/BIKE CONT ECG MON/PHARM STRESS INTERP & REPORT ONLY NJ TEST STRESS CARDIOVASCULAR TRACING ONLY Lotus Freed MD 57 [facility] [address] [place] [address] Phone: tel: fax: [facility] - [facility] [address] [address] Phone: tel: fax: Referral ID Status Reason Start Date Expiration Date Visits Re quested Visits Authorized [id number] Closed 12/18/2024 02/15/2025 1 1 Encounter Details Date Type Department Care Team (Latest Contact Info) Description 12/24/2024 12:00 PM EST Ancillary Procedure [facility] - [facility] [address] [address] Chest pain; Abnormal EKG; Abnormal result of other cardiovascular function study Social History Tobacco Use Types Packs/Day Years [...] on file Sexual Orientation Not on file documented as of this encounter Last Filed Vital Signs Vital Sign Reading Time Taken Comments Blood Pressure - - Pulse - - Temperature - - Respiratory Rate - - Oxygen Saturation - - Inhaled Oxygen Concentration - - Weight 93 kg (205 lb) 12/24/2024 12:11 PM EST Height 170.2 cm (5' 7 ) 12/24/2024 12:11 PM EST Body Mass Index 32.11 12/24/2024 12:11 PM EST documented in this encounter Plan of Treatment Not on file documented as of this encounter Procedures Procedure Name Priority Date/Time Associated Diagnosis Comments NM LEXISCAN STRESS TEST W/ MYOCARDIAL PERFUSION Routine 12/24/2024 2:42 PM EST Chest pain Abnormal EKG Abnormal result of other cardiovascular function study documented in this encounter Results * NM LEXISCAN STRESS TEST W/ [...] Scores: SDS Score: 1 Percentage Abnormal: 1.47% us Lotus Freed MD CV STRESS PROCEDURES Final Res ult documented in this encounter Visit Diagnoses Diagnosis Chest pain Unspecified chest pain Abnormal EKG Nonspecific abnormal electrocardiogram (ECG) (EKG) Abnormal result of other cardiovascular function study documented in this encounter Administered Medications Inactive Administered Medications - up to 3 most recent administrations Medication Order MAR Action Action Date Dose Rate Site aminophylline injection 75 mg 75 mg, intravenous, Once in imaging, Starting on Mon12/24/24 at 1335, For 1 dose Given 12/24/2024 1:35 PM EST 75 mg regadenoson (LEXISCAN) injection 0.4 mg 0.4 mg, intravenous, Once in imaging, Starting on Mon12/24/24 at 1330, For 1 dose Given 12/24/2024 1:43 PM EST 0.4 mg TC-99M tetrofosmin P radio-isotope injection 10.3 millicurie 10.3 millicurie, intravenous, Once in imaging, Starting on Mon12/24/24 at 1230, For 1 dose Given 12/24/2024 12:20 PM EST 10.3 millicuries TC-99M tetrofosmin P radio-isotope injection 29.3 millicurie 29.3 millicurie, intravenous, Once in imaging, Starting on Mon12/24/24 at 1330, For 1 dose Given 12/24/2024 1:25 PM EST 29.3 millicuries documented in this encounter Care Teams Program Management Specialist Relationship Specialty Start Date End Date Lotus Freed MD PCP - General Endocrinology 12/24/24 documented as of this encounter
[2024-12-30 08:47] VITALS: BP 141/95; PULSE 64; RESP 16; TEMP 36.5; O2SAT 95
[2024-12-30] MEDS: Tetracaine HCl/PF 0.5% Oph Sol 4 ML DROPS 1 DROP EYE-RIGHT (08:52)
[2024-12-30] MEDS: Cyclopentolate 1 % Ophth Sol 2 ML DRPBTL 1 DROP EYE-RIGHT ×3 (08:53→09:09)
[2024-12-30] MEDS: Tropicamide 1 % Ophth Sol 3 ML BTL 1 DROP EYE-RIGHT ×3 (08:55→09:11)
[2024-12-30] MEDS: Ketorolac Tromethamine 0.5% Op 5 ML DROPS 1 DROP EYE-RIGHT ×3 (08:57→09:13)
[2024-12-30] MEDS: Phenylephrine HCL 2.5% Oph SoL 2 ML BOTTLE 1 DROP EYE-RIGHT ×3 (08:59→09:15)
[2024-12-30] MEDS: Lactated Ringers 500 ML 50 ML IV (09:01)
--- NOTE | 2024-12-30 09:28 | P.PCNO_ITS ---
Ophthalmology Procedure Procedure Date of Service: 12/30/24 Ophthalmology Viscoelastic: Healon Duet Dual Pack Pro Ophthalmology Lenses: IOL Acrysof MP - [id number] (19.5) Procedure Notes: PREOPERATIVE DIAGNOSIS: Decreased visual acuity right eye secondary to cataract POSTOPERATIVE DIAGNOSIS: Same PROCEDURE: Right cataract extraction with intraocular lens insertion SURGEON: Mitch Bradford M.D. ANESTHESIA: Topical/MAC ESTIMATED BLOOD LOSS: None COMPLICATIONS: None After obtaining informed consent, the patient was brought to the operating room suite and placed in the supine position. After adequate sedation per anesthesia, topical drops of Tetracaine were given to the right eye. The eye was then prepped and draped in the usual sterile fashion. The operating room microscope was then positioned over the operative eye and a lid speculum placed. A paracentesis was created. Viscoelastic was then instilled into the anterior chamber. A three plane incision was then created temporally, utilizing a 2.85 mm keratome. Capsulotomy forceps were then utilized to create a circular tear capsulotomy. Hydrodissection and hydrodelineation were carried out until adequate mobilization of the nucleus occurred. Phacoemulsification was then utilized to remove the dense central nu cleus followed by removal of the cortical material utilizing the automated aspiration irrigation unit. Viscoelastic was instilled into the posterior capsular bag followed by placement of a posterior chamber intraocular lens without difficulty. The residual Viscoelastic was then removed utilizing the automated IA machine. The wound was checked and found to be watertight. The patient tolerated the procedure well and the lid speculum was removed. Intracameral injection of Vigamox 0.1 mL followed by a subtenon injection of Kenalog-40 0.2 mL were administered. The patient will be seen in the a.m.
--- NOTE | 2024-12-30 09:28 | MHC.SHP ---
Pre-Procedural Eval Section A - 24 Hr Update-Section A only Date of Service: 12/30/24 The patient is an INPATIENT: No Changes since office visit: No Cold of Flu in the past 2 weeks, No New Medical Problems, No Changes in Medication and No Patient answered all questions The patient has been examined within 24 hours of the surgical procedure. The History & Physical has been completed within 30 days and I have reviewed it.: Yes Section B - Complete if H&P > 30 days Chief Complaint: Age-related nuclear cataract, right eye Allergies: Allergies Allergy/AdvReac Type Severity Reaction Status Date / Time codeine Allergy Severe Stomach Verified 12/30/24 08:35 Upset Plan Diagnosis/Plan: Unchanged I have reviewed the history and physical and performed a pertinent physical examination on my patient. No changes have occurred unless specified. Time Spent With Patient Time: Total time managing care of this patient today ____ minutes.
[2024-12-30 09:52] VITALS: BP 140/97; PULSE 63; RESP 18; TEMP 36.6; O2SAT 99
== END 2024-12-30 09:58 | disposition home or self-care (01) ==
PROVIDERS: PCP Internal Medicine; Visit Provider Ophthalmology
PROC: (CPT 66985; principal; 2024-12-30 10:00)
DX: H25.11 Age-related nuclear cataract, right eye (principal); H54.7 Unspecified visual loss; H35.09 Other intraretinal microvascular abnormalities; H18.413 Arcus senilis, bilateral; Z83.511 Family history of glaucoma; Z83.518 Family history of other specified eye disorder; Z88.5 Allergy status to narcotic agent; Z87.891 Personal history of nicotine dependence; Z79.899 Other long term (current) drug therapy
CPT/HCPCS: 66984; J2250; J3301; V2630

== ENCOUNTER 2025-01-22 14:26 | Outpatient (REF) | payer BC, SELFPAY ==
--- OUTSIDE RECORDS SUMMARY | 2025-01-22 17:21 | XMS_ITS | Clinical Summary ---
Author Organization [address] [place] [address] [place] [phone] Phone Care Team Providers Care Fan Mail Clerk Name Role Phone Lotus Freed MD Primary Care Provider [phone] Allergies Active Allergy Reactions Criticality Noted Date [...] 12/24/2024 12:00 PM EST Ancillary Procedure [facility] - [facility] [address] [facility] [place] [address] [place] [address] Chest pain; Abnormal EKG; Abnormal result of other cardiovascular function study from Last 3 Months Immunizations Name Administration Dates Next Due Influenza trivalent, with pr eservative (Fluzone; Afluria) 6mo and older 07/29/2019 Surgical History Surgery Date Site/Laterality Comments OTHER SURGICAL HISTORY PROCEDURE: [place] ANTERIOR COLPORRAPHY RPR CYSTOCELE W/CYSTO; COMMENT: x 2 OOPHORECTOMY PROCEDURE: HISTORICAL OOPHORECTOMY OTHER SURGICAL HISTORY PROCEDURE: [place] REPAIR RECTOCELE SEPARATE PROCEDURE OTHER SURGICAL HISTORY [...] 50+ Years (1 of 2 - PCV) 1975 Zoster Vaccines (1 of 2) 2006 RSV [...] patient's age to complete this topic Meningococcal B Vacine Aged Out No lo nger eligible based on patient's age to complete [...] C Screening (11/03/2016) Hepatitis C Screening abstracted Result [facility] Provider HEALTH MAINTENANCE Final Result * Colonoscopy (04/20/2012) Colonoscopy no interpretation , abstracted Comment:per pt Anatomical Region Laterality Modality Other [facility] Provider HEALTH MAINTENANCE Final Result from Last 3 Months or Most Recently Relevant to Health Maintenance Insurance MEDICARE [facility] Care Teams Fan Mail Clerk Relationship Specialty Start Date End Date Lotus Freed MD PCP - General Endocrinology 12/24/24
--- OUTSIDE RECORDS SUMMARY | 2025-01-22 17:21 | XMS_ITS | Encounter Summary ---
Author Organization [facility] Address [address] [place] [address] Care Team Providers Care Police Detective Name Role Phone Lotus Freed MD Primary Care Provider [phone] Reason for Visit * Cardiac Stress Testing [...] CARDIOVASCULAR TRACING ONLY Lotus Freed MD 57 [facility] [address] [place] [address] Phone: tel: fax: [facility] - [facility] [address] [address] Phone: tel: fax: Referral ID Status Reason Start Date Expiration Date Visits Re quested Visits Authorized [id number] Closed 12/18/2024 02/15/2025 1 1 Encounter Details Date Type Department Care Team (Latest Contact Info) Description 12/24/2024 12:00 PM EST Ancillary Procedure [facility] - [facility] [address] [address] Chest pain; Abnormal EKG; Abnormal [...] millicuries documented in this encounter Care Teams Police Detective Relationship Specialty Start Date End Date Lotus Freed MD PCP - General Endocrinology 12/24/24 documented as of this encounter
== END 2025-01-22 14:27 | disposition home or self-care (01) ==
LOC: HO.MAMMO 14:26
PROVIDERS: PCP Internal Medicine; Visit Provider Internal Medicine
DX: Z12.31 Encounter for screening mammogram for malignant neoplasm of breast (principal)
CPT/HCPCS: 77063; 77067

== ENCOUNTER → 2025-01-22 15:00 | Outpatient (BNV) | payer BC, SELFPAY | PROVIDERS: PCP Internal Medicine; Visit Provider Internal Medicine | DX: Z12.31 Encounter for screening mammogram for malignant neoplasm of breast (principal) | CPT/HCPCS: 77063; 77067 ==

== ENCOUNTER 2025-02-10 12:13 | Outpatient (AMB) | payer BC, SELFPAY ==
--- NOTE | 2025-02-10 12:31 | A.OFFVIS_ITS ---
Vital Signs 02/10/25 12:35 Height 5 ft 7 in Weight 207 lb 3.752 oz BMI 32.5 BP 148/80 H Blood Pressure Location Lt brachial Position Sitting Pulse 61 Pulse Source Monitor Intake Visit Reasons: INFORMATION TECHNOLOGY SPECIALIST/ Lotus Stu/abn stress test Allergies codeine Allergy (Severe, Verified 12/30/24 08:35) Stomach Upset Medication List - Last Reconciled 02/10/25 by Myles Fitzpatrick MD atorvastatin 80 mg PO DAILY cholecalciferol (vitamin D3) PO diazepam (Valium) 10 mg (2 x 5 mg) PO BEDTIME PRN 30 days glucosamine-chondroitin 1 tab PO DAILY levocetirizine 5 mg PO DAILY metoprolol tartrate 12.5 mg (1/2 x 25 mg) PO BID PRN tramadol 50 mg PO Q8H PRN valacyclovir (Valtrex) 1,000 mg PO DAILY HPI Comments Details: Danette has been referred for evaluation of an abnormal stress test. It seems that she was having episodes of palpitations and left arm numbness. However, she did not have any clear angina. No previous history of coronary disease or m yocardial infarction. The initial episodes of profound palpitations where she was highly symptomatic have resolved completely but she still gets some intermittent episodes where she gets brief fluttering. Not clear if it is an atrial arrhythmia like atrial fibrillation. Any case, she underwent an ETT in [place] and following that she underwent a pharmacological stress test at [facility]. Reported to be abnormal and hence she is referred here. It seems that she has gained a lot of weight in the last few months. Otherwise, as mentioned about does not have any clear-cut angina. Nonspecific left arm numbness which can be present any time but mostly when she is lying down at nighttime. That sounds rather neurological. [facility] Medical History Cataract Heart palpitations Asthma Back pain HSV (herpes simplex virus) infection Anxiety Surgical History Hx of left cataract extraction (12/16/24) Family History (Updated 02/10/25 @ 13:00 by Myles Fitzpatrick MD) Father Hx of CABG Social History Housing: Condominium Are you a primary laboratory animal caretaker to a significant other at home: No Do you presently have visiting nurse or other home services: No Alcohol intake: current Alcohol intake frequency: a few times a month Patient Tobacco Use Status: Former Tobacco user Tobacco use type: Cigarette Cigarette Packs Per Day: 2 Years Smoked: 15 e-Cigarette/Vaping Use: Never Used Second Hand Smoke Exposure: No service: No Current occupational status: employed and retired 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 Current occupational exposures/hazards: No Cognitive needs: No Hearing needs: No Vision needs: Yes Review of Systems Const Denies weakness ENT Denies dizziness Card Reports chest pain, Denies chest pain with activity, Denies syncope, Denies rapid heart rate, Denies pedal edema, Denies edema, Denies leg edema, Denies lightheadedness, Reports palpitations, Denies dyspnea and Denies orthopnea Resp Denies cough and Denies dyspnea GI Denies hematochezia and Denies change in stool character Musc Denies abnormal gait, Denies muscle cramps, Denies muscle weakness, Denies numbness, Denies radiating pain into limb and Denies tingling Neuro Denies abnormal gait, Denies dizziness, Denies syncope, Denies numbness, Denies tingling and Denies weakness Endo Reports palpitations Physical Exam Vital Signs: Last Vital Signs Pulse 61 02/10/25 12:35 BP 148/80 H 02/10/25 12:35 BMI result Body Mass Index 32.5 Const General: comfortable and no acute distress Orientation/consciousness: patient oriented x3 HEENT Other: Unremarkable Head: Yes normal to inspection Neck Neck: Yes normal visual inspection Chest Chest palpation & inspection: normal inspection of the chest Resp Auscultation: clear to auscultation bilaterally Cardio Palpation: normal PMI Heart sounds: S1 normal heart sound present, S2 normal heart sound present, no gallops, no murmurs and no rubs GI Palpation (GI): Soft to palpation Back/Spine/Pelvis Other: unremarkable Skin General skin exam: no rashes or lesions noted Neuro General: patient oriented x3 Extrem General: Yes normal to inspection Psych Mental Status: mental status grossly normal Office Procedures EKG Details: EKG with underlying sinus rhythm at 61/Min; sinus arrhythmias; nonspecific ST-[place]; [place] [id number], Complete Assessment & Plan Assessment & Plan (1) Abnormal stress test: Code(s): R94.39 - Abnormal result of other cardiovascular function study Category: Medical (2) Palpitations: Code(s): R00.2 - Palpitations Category: Medical (3) Atherosclerotic cardiovascular disease: Code(s): I25.10 - Atherosclerotic heart disease of lumbee coronary artery without angina pectoris Category: Medical Plan Cardiac studies reviewed. EKG with nonspecific ST-T changes as above. In the stress test, patient was able to reach 6.3 METS on Brian protocol. Reached only 73% of maximum predicted heart rate. However, no angina at that workload. Had reported shortness of breath and had isolated PACs/PVCs. No EKG evidence of ischemia. In the pharmacological stress perfusion imaging study, small size, very mild intensity reversible defect in the basal anterolateral wall. Stress LVEF 63%. Resting LVEF 58%. LAD calcification on the CAT scan images. Holter for 42 hours shows underlying sinus rhythm with occasional PACs. Overall, palpitations of uncertain nature. Possible atrial arrhythmias. We will require a longer term monitor for about 14 days. Also get an echocardiogram for cardiac function assessment. With regard to the abnormal stress test findings, we will proceed with coronary CTA for further evaluation. She does not have any overt angina and could have just stable coronary artery disease. She is already on statins. Otherwise, gradual weight loss will be immensely helpful. We will follow her up in a few weeks' time once the above completed. In the interim, if any acute issues like angina or palpitations, advised to seek emergency help. Orders: Orders ECG 14 day holter monitor Today R00.2 - Palpitations CT Cardiac Coronary Angio Today I25.10 - Atherosclerotic heart disease of lumbee coronary artery without angina pectoris, R94.39 - Abnormal result of other cardiovascular function study CA echo transthoracic complete Today I25.10 - Atherosclerotic heart disease of lum[place] coronary artery without angina pectoris, R94.39 - Abnormal result of other cardiovascular function study Basic Metabolic Panel Today I25.10 - Atherosclerotic heart disease of lumbee coronary artery without angina pectoris, R94.39 - Abnormal result of other cardiovascular function study Coding Level of Care Code New Pt Level 4 (33040) Complex EM visit Add On G2211 Diagnoses Abnormal stress test R94.39 Palpitations R00.2 Atherosclerotic cardiovascular disease I25.10 CPT Codes EKG - CPT: 12652-[id number], Complete ([id number])
[2025-02-10 12:35] VITALS: BP 148/80; PULSE 61; BMI 32.5
== END 2025-02-10 14:18 | disposition home or self-care (01) ==
LOC: HO.HCS 12:14
PROVIDERS: PCP Internal Medicine; Visit Provider Internal Medicine
DX: R94.39 Abnormal result of other cardiovascular function study (principal); R00.2 Palpitations; I25.10 Atherosclerotic heart disease of native coronary artery without angina pectoris
CPT/HCPCS: 93010; 99204

== ENCOUNTER → 2025-02-10 12:13 | Outpatient (BNVA) | payer BC, SELFPAY | PROVIDERS: PCP Internal Medicine; Visit Provider Internal Medicine | DX: I25.10 Atherosclerotic heart disease of native coronary artery without angina pectoris (principal); R94.39 Abnormal result of other cardiovascular function study; R00.2 Palpitations | CPT/HCPCS: 93005 ==

== ENCOUNTER 2025-02-18 15:02 | Outpatient (REF) | payer BC, SELFPAY ==
[2025-02-18 17:02] LABS: Anion Gap 11 (12-20); Blood Urea Nitrogen 11 mg/dL (9-16); Calcium 9.8 mg/dL (8.4-10.2); Carbon Dioxide 26 mmol/L (22-29); Chloride 109 mmol/L (96-108); Estimated Glomerular Filt Rate > 60; Glucose Random 92 mg/dL (60-115); Potassium 3.9 mmol/L (3.3-5.1); Sodium 142 mmol/L (135-145)
--- OUTSIDE RECORDS SUMMARY | 2025-02-18 17:57 | XMS_ITS | Encounter Summary ---
Author Organization [facility] Address [address] [place] [address] Care Team Providers Care Hairspring Fabrication Supervisor Name Role Phone Lotus Peraza MD Primary Care Provider Unavaila ble Reason for Visit * Reason Onset Date Comments radiology 05/03/2017 Xray Encounter Details Date Type Department Care Team Description 05/03/[address] [address] Lotus Peraza MD radiology (Xray) Social History Tobacco Use Types Packs/Day Years Used Date Smoking Tobacco: Former Cigarettes 40 Q uit: 09/01/2008 Alcohol Use Standard Drinks/Week Comments No 0 (1 standard drink = 0.6 oz pur e alcohol) Sex Assigned at Date Recorded Not on file documented as of this encounter Miscellaneous Notes * Telephone Encounter - Liana Maddox - 05/03/2017 11:12 AM EDT Images sent to [facility] 05/03/17k * Telephone Encounter - Ty Albarado - 05/03/2017 10:38 AM EDT Patient has and appointment, please send Xray image from 12/03/2016 of hip and MRI image of back form 02/04/2017 to [facility] documented in this encounter Plan of Treatment Not on file documented as of this encounter Visit Diagnoses Not on filedocumented in this encounter Care Teams Hairspring Fabrication Supervisor Relationship Specialty Start Date End Date Lotus Peraza MD PCP - General Internal Medicine 07/28/16 documented as of this encounter
--- OUTSIDE RECORDS SUMMARY | 2025-02-18 17:57 | XMS_ITS | Encounter Summary ---
Author Organization [facility] Address [address] [place] [address] Care Team Providers Care Life Scientists Name Role Phone Lotus Peraza MD Primary Care Provider Reji dean Encounter Details Date Type Department Care Team Description 01/06/2020 Orders Only Medicine/Pediatrics - [address] [phone] Lotus Peraza MD Social History Tobacco Use Types Packs/Day Years Used Date Smoking Tobacco: Former Cigarettes 40 Q uit: 09/01/2008 Smokeless Tobacco: Never Alcohol Use Standard Drinks/Week Comments No 0 (1 standard drink = 0.6 oz pur e alcohol) Sex Assigned at Date Recorded Not on file documented as of this encounter Plan of Treatment Not on file documented as of this encounter Visit Diagnoses Not on filedocumented in this encounter Care Teams Life Scientists Relationship Specialty Start Date End Date Lotus Peraza MD PCP - General Internal Medicine 07/28/16 documented as of this encounter
--- OUTSIDE RECORDS SUMMARY | 2025-02-18 17:57 | XMS_ITS | Encounter Summary ---
Author Organization [facility] Address [address] [place] [address] Care Team Providers Care Secretary Of State Name Role Phone Lotus Peraza MD Primary Care Provider Reji dean Encounter Details Date Type Department Care Team Description 04/20/2017 Oracle R12 Developer Report Medical Records [address] [place] [address] Abstract, Provider Social History Tobacco Use Types Packs/Day Years [...] on filedocumented in this encounter Care Teams Secretary Of State Relationship Specialty Start Date End Date Lotus Peraza MD PCP - General Internal Medicine 07/28/16 documented as of this encounter
--- OUTSIDE RECORDS SUMMARY | 2025-02-18 17:57 | XMS_ITS | Encounter Summary ---
Author Organization [facility] Address [address] [place] [address] Care Team Providers Care Reverse Unit Operator Fisherman Name Role Phone Lotus Peraza MD Primary Care Provider Emmaa ble Reason for Visit * Reason Onset Date Comments REFERRAL 03/17/2017 Encounter Details Date Type Department Care Team Description 03/17/2017 Telephone Physiatry - English [address] [place] [address] Yuriy Faustin PA-C REFERRAL Social History Tobacco Use Types Packs/Day Years Used Date Smoking Tobacco: Former Cigarettes 40 Q uit: 09/01/2008 Alcohol Use Standard Drinks/Week Comments No 0 (1 standard drink = 0.6 oz pur e alcohol) Sex Assigned at Date Recorded Not on file documented as of this encounter Miscellaneous Notes * Telephone Encounter - N'Giovanna Mock - 03/17/2017 11:26 AM EDT Request for a referral to a [facility] Specialist for a patient with a [facility] PCP. If patient does NOT have a [facility] PCP they must obtain a referral from their PCP before being seen-do not submit request to Referrals department-contact patient. Christos LUNA and Jaren LUNA should not see patients with community PCP's as they are not billed as specialists. Specialty patient is being referred to: Physiatry Name of Specialist patient is seeing: Clayton Faustin Reason/diagnosis for visit: back pain Date of appoinment: 03/31/17 If retro, date referral needs to start: Lotus Freed Payor: DARIO/O FFS / Plan: HMO $15 [place] [id number] / Product Type: HMO [id number] documented in this encounter Plan of Treatment Not on file documented as of this encounter Visit Diagnoses Not on filedocumented in this encounter Care Teams Reverse Unit Operator Fisherman Relationship Specialty Start Date End Date Lotus Peraza MD PCP - General Internal Medicine 07/28/16 documented as of this encounter
--- OUTSIDE RECORDS SUMMARY | 2025-02-18 17:57 | XMS_ITS | Encounter Summary ---
Author Organization [facility] Address [address] [place] [address] Care Team Providers Care Chief Knowledge Officer Name Role Phone Lotus Peraza MD Primary Care Provider Reji dean Encounter Details Date Type Department Care Team Description 09/02/2020 Orders Only Medicine/Pediatrics - [address] [phone] Lotus Peraza MD Exposure to COVID-19 virus (Primary Dx) Social History Tobacco Use Types Packs/Day Years Used Date Smoking Tobacco: Former Cigarettes 40 Q uit: 09/01/2008 Smokeless Tobacco: Never Alcohol Use Standard Drinks/Week Comments No 0 (1 standard drink = 0.6 oz pur e alcohol) Sex Assigned at Date Recorded Not on file documented as of this encounter Plan of Treatment Not on file documented as of this encounter Results * COVID-19 TESTING (09/02/2020 9:50 AM EDT) SARS-COV-2 RNA, QUALRT-PCR NOT DETECTED NOT DETECT 09/03/2020 10:40 AM EDT [facility] Comment: Disclaimer: The manner in which this information is used to guide patient care is the responsibility of the healthcare provider. Testing was performed using the [employer] M2000 SARS-CoV-2 test. This test has been authorized by FDA under an Emergency Use Authorization (EUA). This test is only authorized for the duration of time the declaration that circumstances exist justifying the authorization of the emergency use of in vitro diagnostic tests for detection of SARS-CoV-2 virus and/or diagnosis of COVID-19 infection under section 564(b)(1) of the Act, 21 U.S.C. 360bbb-3(b)(1), unless the authorization is terminated or revoked sooner. 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
--- OUTSIDE RECORDS SUMMARY | 2025-02-18 17:57 | XMS_ITS | Encounter Summary ---
Author Organization [facility] Address [address] [place] [address] Care Team Providers Care Salvage Diver Name Role Phone Lotus Peraza MD Primary Care Provider Reji dean Encounter Details Date Type Department Care Team Description 06/18/2019 [facility] Medical Records [address] [place] [id number] Abstract, Provider Social History Tobacco Use Types [...] on filedocumented in this encounter Care Teams Salvage Diver Relationship Specialty Start Date End Date Lotus Peraza MD PCP - General Internal Medicine 07/28/16 documented as of this encounter
--- OUTSIDE RECORDS SUMMARY | 2025-02-18 17:57 | XMS_ITS | Encounter Summary ---
Author Organization [facility] Address [address] [place] [address] Care Team Providers Care Machine Ironer Name Role Phone Lotus Peraza MD Primary Care Provider Reji dean Encounter Details Date Type Department Care Team Description 08/03/2020 Orders Only Medicine/Pediatrics - [address] [phone] Lotus Peraza MD Social History Tobacco Use [...] on filedocumented in this encounter Care Teams Machine Ironer Relationship Specialty Start Date End Date Lotus Peraza MD PCP - General Internal Medicine 07/28/16 documented as of this encounter
--- OUTSIDE RECORDS SUMMARY | 2025-02-18 17:57 | XMS_ITS | Encounter Summary ---
Author Organization [facility] Address [address] [place] [address] Care Team Providers Care Wire Taper Name Role Phone Lotus Peraza MD Primary Care Provider Reji dean Encounter Details Date Type Department Care Team Description 07/19/2020 Orders Only Adult Medicine [address] [address] Lotus Peraza MD Nausea and vomiting, intractability of vomiting not specified, unspecified vomiting type (Primary Dx) Social History Tobacco Use Types [...] documented as of this encounter Results * HUMAN GRANULOCY EHRLICHIOSIS (07/19/2020 9:22 AM EDT) HGE AB IgG <1:64 07/22/2020 5:24 PM EDT [facility] HGE AB IgM <1:20 07/22/2020 5:24 PM EDT [facility] HGE INTERPRETATION SEE NOTE 2019 5:24 PM EDT [facility] Comment: ?ANTIBODY NOT DETECTED :REFERENCE RANGE: ?IgG ??<1:64 ?IgM ??<1:20 Anaplasma phagocytophilum is the tick-borne agent causing Human Granulocytic Ehrlichiosis (HGE). HGE is distinct and separate from Human Monocytic Ehrlichiosis (HME), caused by Ehrlichia chaffeensis. Serologic cross-reactivity between A. phagocytophilum and E. Chaffeensis is minimal (5-15%). This test was developed and its analytical ??performance characteristics have been determined by [facility]. ??It has not been cleared or approved by FDA. This assay has been validated ??pursuant to the CLIA regulations and is used for clinical purposes. Test(s) performed at: ?[facility] ?Edvin Irvin M.D., Group Insurance Special Agent ?[id number] [place] [address] ?[place] [address] ?CLIA ??[id number] HGE COMMENT TNP () 07/22/2020 5:[address] [facility] 07/19/2020 9:22 AM EDT 07/19/2020 9:26 AM EDT Lotus Peraza MD LAB [facility] * (ABNORMAL) CBC (AUTO DIFF PLATELET) (07/19/2020 9:22 AM EDT) WHITE BLOOD COUNT 7.2 4.8 - 10.8 x10-3/uL 07/19/2020 12:54 PM EDT [facility] RED BLOOD COUNT 5.1(H) 3.8 - 4.8 x10-6/uL 07/19/2020 12:54 PM EDT [facility] Hemoglobin 16.0 11.5 - 16.0 g/dL 07/19/2020 12:54 PM EDT [facility] Hematocrit 49.2(H) 35 - 47 % 07/19/2020 12:54 PM EDT [facility] MEAN CORPUSCULAR VOLUME 96.5 79 - 98 fL 07/19/2020 12:54 PM EDT [facility] MEAN CORPUSCULAR HEMOGLOBIN 31.4 27 - 32 pg 07/19/2020 12:54 PM EDT [facility] MEAN CORPUSCULAR HGB CONC 32.5 32 - 37 g/dL 07/19/2020 12:54 PM EDT [facility] RED CELL DISTRIBUTION WIDTH 13.5 11 - 15 % 07/19/2020 12:54 PM EDT [facility]T COUNT 302 130 - 400 x10-3/uL 07/19/2020 12:54 PM EDT [facility] MEAN PLATELET VOLUME 10.3 7 - 11 fL 07/19/2020 12:54 PM EDT [facility] NRBC % AUTO 0.0 <1 % 07/19/2020 12:54 PM EDT [facility] NEUTROPHILS % 62.4 % 07/19/2020 12:54 PM EDT [facility] LYMPH % 27.9 % 07/19/2020 12:54 PM EDT [facility] MONO % 6.4 % 07/19/2020 12:54 PM EDT [facility] EOS % 2.6 % 07/19/2020 12:54 PM EDT [facility] BASO % 0.4 % 07/19/2020 12:54 PM EDT [facility] IMMATURE GRANULOCYTES % 0.3 % 07/19/2020 12:54 PM EDT [facility] NRBC # AUTO 0.00 <0.1 x10-3/uL 07/19/2020 12:54 PM EDT [facility] NEUT # 4.48 1.5 - 7.0 x10-3/uL 07/19/2020 12:54 PM EDT [facility] LYMPH # 2.00 1 - 5.0 x10-3/uL 07/19/2020 12:54 PM EDT [facility] MONO # 0.46 0.2 - 1.0 x10-3/uL 07/19/2020 12:54 PM EDT [facility] EOS # 0.19 0 - 0.5 x10-3/uL 07/19/2020 12:54 PM EDT [facility] BASO # 0.03 0 - 0.2 x10-3/uL 07/19/2020 12:54 PM EDT [facility] IMMATURE GRANULOCYTES # 0.02 0 - 0.03 x10-3/uL 07/19/2020 12:54 PM EDT [facility] 07/19/2020 9:22 AM EDT 07/19/2020 9:26 AM EDT Lotus Peraza MD LAB [facility] * (ABNORMAL) COMPREHENSIVE METABOLIC PANEL (07/19/2020 9:22 AM EDT) GLUCOSE 109(H) 70 - 100 mg/dL 07/19/2020 12:56 PM EDT [facility] Comment:Reference range appl icable to fasting specimens only Blood Urea Nitrogen 13 5 - 25 mg/dL 07/19/2020 12:56 PM EDT [facility] CREAT 0.74 0.5 - 1.1 mg/dL 07/19/2020 12:56 PM EDT [facility] GLOMERULAR FILTRATION RATE > 60 07/19/2020 12:56 PM EDT [facility] Comment: If patient is -German, multiply result by 1.21 Chronic Kidney Disease: < 60 ml/min/1.73 square meters Kidney Failure: < 15 ml/min/1.73 square meters NA 139 135 - 145 mEq/L 07/19/2020 12:56 PM EDT [facility] K 4.5 3.5 - 5.5 mmol/L 07/19/2020 12:56 PM EDT [facility] CL 106 96 - 110 mmol/L 07/19/2020 12:56 PM EDT [facility] CARBON DIOXIDE (CO2) 29 21 - 32 mmol/L 07/19/2020 12:56 PM EDT [facility] ANION GAP 4 3 - 11 07/19/2020 12:56 PM EDT [facility] CALCIUM 9.5 8.5 - 10.5 mg/dL 07/19/2020 12:56 PM EDT [facility] TOTAL PROTEIN (TP) 7.2 6.0 - 8.0 G/dL 07/19/2020 12:56 PM EDT [facility] Albumin 4.4 3.2 - 5.0 G/dL 07/19/2020 12:56 PM EDT [facility] BILIRUBIN TOTAL 0.6 0.0 - 1.4 mg/dL 07/19/2020 12:56 PM EDT [facility] SGOT 15 10 - 42 U/L 07/19/2020 12:56 PM EDT [facility] SGPT 26 10 - 60 U/L 07/19/2020 12:56 PM EDT [facility] ALK PHOS 69 42 - 121 U/L 07/19/2020 12:56 PM EDT [facility] 07/19/2020 9:22 AM EDT 07/19/2020 9:26 AM EDT Lotus Peraza MD LAB [facility] * LYME POLYVALENT AB SCREEN (07/19/2020 9:22 AM EDT) LYME DISEASE ANTIBODIES NEGATIVE NEGATIVE 07/19/2020 3:52 PM EDT [facility] 07/19/2020 9:22 AM EDT 07/19/2020 9:26 AM EDT Lotus Peraza MD LAB [facility] documented in this encounter Visit Diagnoses Diagnosis Nausea and vomiting, intractability of vomiting not specified, unspecified vomiting type- Primary documented in this encounter Care Teams Wire Taper Relationship Specialty Start Date End Date Lotus Peraza MD PCP - General Internal Medicine 07/28/16 documented as of this encounter
--- OUTSIDE RECORDS SUMMARY | 2025-02-18 17:57 | XMS_ITS | Encounter Summary ---
Author Organization [facility] Address [address] [place] [address] Care Team Providers Care Hearing Impaired Teacher Name Role Phone Effie Yarbrough Primary Care Provider Lotus Mccarthy MD Primary Care Provider Reji dean Encounter Details Date Type Department Care Team Description 06/16/2016 Transfer Records Medical Records [address] [place] [address] Abstract, Provider Social History Tobacco Use Types Packs/Day Years Used Date Smoking Tobacco: Never Assessed Sex Assigned at Date Recorded Not on file documented as of this encounter Plan of Treatment Not on file documented as of this encounter Visit Diagnoses Not on filedocumented in this encounter Care Teams Hearing Impaired Teacher Relationship Specialty Start Date End Date Effie Yarbrough PCP - General Family Practice 05/02/16 07/27/16 Lotus Peraza MD PCP - General Internal Medicine 07/28/16 documented as of this encounter
--- OUTSIDE RECORDS SUMMARY | 2025-02-18 17:57 | XMS_ITS | Encounter Summary ---
Author Organization [facility] Address [address] [place] [address] Care Team Providers Care Alteration Inspector Name Role Phone Lotus Peraza MD Primary Care Provider Reji dean Encounter Details Date Type Department Care Team Description 03/16/2020 Orders Only Medicine/Pediatrics - [address] [phone] Lotus Peraza MD Social History Tobacco Use [...] on filedocumented in this encounter Care Teams Alteration Inspector Relationship Specialty Start Date End Date Lotus Peraza MD PCP - General Internal Medicine 07/28/16 documented as of this encounter
--- OUTSIDE RECORDS SUMMARY | 2025-02-18 17:57 | XMS_ITS | Encounter Summary ---
Author Organization [facility] Address [address] [place] [address] Care Team Providers Care Page Technician Name Role Phone Lotus Perzaa MD Primary Care Provider Reji dean Encounter Details Date Type Department Care Team Description 04/20/2017 Sales Management Intern Report Medical Records [address] [place] [address] Abstract, Provider Social History Tobacco Use Types [...] on filedocumented in this encounter Care Teams Page Technician Relationship Specialty Start Date End Date Lotus Peraza MD PCP - General Internal Medicine 07/28/16 documented as of this encounter
--- OUTSIDE RECORDS SUMMARY | 2025-02-18 17:57 | XMS_ITS | Encounter Summary ---
Author Organization [facility] Address [address] [place] [address] Care Team Providers Care Nuclear Equipment Research Engineer Name Role Phone Lotus Peraza MD Primary Care Provider Reji dean Encounter Details Date Type Department Care Team Description 01/03/2017 Transfer Records Medical Records [address] [place] [address] Abstract, Provider Social History Tobacco Use Types [...] on filedocumented in this encounter Care Teams Nuclear Equipment Research Engineer Relationship Specialty Start Date End Date Lotus Peraza MD PCP - General Internal Medicine 07/28/16 documented as of this encounter
--- OUTSIDE RECORDS SUMMARY | 2025-02-18 17:57 | XMS_ITS | Encounter Summary ---
Author Organization [facility] Address [address] [place] [address] Care Team Providers Care Shipper And Receiving Name Role Phone Lotus Peraza MD Primary Care Provider Reji dean Encounter Details Date Type Department Care Team Description 10/19/2020 Orders Only Medicine/Pediatrics - [address] [phone] Lotus Peraza MD Social History Tobacco Use [...] on filedocumented in this encounter Care Teams Shipper And Receiving Relationship Specialty Start Date End Date Lotus Peraza MD PCP - General Internal Medicine 07/28/16 documented as of this encounter
--- OUTSIDE RECORDS SUMMARY | 2025-02-18 17:57 | XMS_ITS | Encounter Summary ---
Author Organization [facility] Address [address] [place] [address] Care Team Providers Care Shirt Creaser Name Role Phone Lotus Peraza MD Primary Care Provider Reji dean Encounter Details Date Type Department Care Team Description 11/04/2016 Controlled Substance Contract with Plan Medical Records [address] [place] [id number] Abstract, Provider Social History Tobacco Use Types [...] on filedocumented in this encounter Care Teams Shirt Creaser Relationship Specialty Start Date End Date Lotus Peraza MD PCP - General Internal Medicine 07/28/16 documented as of this encounter
--- OUTSIDE RECORDS SUMMARY | 2025-02-18 17:57 | XMS_ITS | Encounter Summary ---
Author Organization [facility] Address [address] [place] [address] Care Team Providers Care Mixer Operator Helper Hot Metal Name Role Phone Lotus Peraza MD Primary Care Provider Reji dean Encounter Details Date Type Department Care Team Description 07/21/2020 Orders Only Medicine/Pediatrics - [address] [phone] Lotus Peraza MD Nausea Social History Tobacco Use Types Packs/Day Years [...] Procedure Name Priority Date/Time Associated Diagnosis Comments CHG IADNA SARS-COV-2 COVID-19 AMPLIFIED PROBE TQ Routine 07/16/2020 Nausea documented in this encounter Results * COVID-19 TESTING (07/16/2020) 07/16/2020 Lotus Peraza MD LAB [facility] documented in this encounter Visit Diagnoses Diagnosis Nausea Nausea alone documented in this encounter Care Teams Mixer Operator Helper Hot Metal Relationship Specialty Start Date End Date Lotus Peraza MD PCP - General Internal Medicine 07/28/16 documented as of this encounter
--- OUTSIDE RECORDS SUMMARY | 2025-02-18 17:57 | XMS_ITS | Encounter Summary ---
Author Organization [facility] Address [address] [place] [address] Care Team Providers Care Embedded Case Manager Name Role Phone Lotus Peraza MD Primary Care Provider Unavaila ble Reason for Visit * Reason Onset Date Comments Port Engineer Feedback 09/04/2017 Encounter Details Date Type Department Care Team Description 09/04/2017 Telephone Medicine/Pediatrics - [address] [phone] Lotus Peraza MD Port Engineer Feedback Social History Tobacco Use Types Packs/Day Years Used Date Smoking Tobacco: Former Cigarettes 40 Q uit: 09/01/2008 Alcohol Use Standard Drinks/Week Comments No 0 (1 standard drink = 0.6 oz pur e alcohol) Sex Assigned at Date Recorded Not on file documented as of this encounter Miscellaneous Notes * Telephone Encounter - Jadyn Evangelista - 09/04/2017 3:34 PM EDT Patient told me : Yuriy Faustin PA-C Which is obviously wrong, ill call her , thanks. Spoke with patient : she sees - [facility] , [place]. ADDRESS AND LOCATION BELOW ARE [facility] [place]. Thank you. * Telephone Encounter - Iman Navarro - 09/04/2017 3:21 PM EDT We need to know who is the patient is seeing * Telephone Encounter - Jadyn Evangelista - 09/04/2017 3:08 PM EDT What insurance does the patient have today? BCBS ? Effective 08/20/09: BCBS will not retro referral requests over 90 days. If request is for this please instruct patient to call the 800# on their insurance card to appeal. Do not submit a request. ? Referrals cannot be processed if the insurance is not accurate. If the insurance listed above in red is NO BILLING INFORMATION FOUND FOR THIS ENCOUTNER The patients correct insurance must be obtained and registered in [facility] or their referral can not be processed. ? Is this a retro request? NO ? If yes for what date of service do you need the retro referral? N/A ? Who is calling to request this referral? Physical Theraphy ? If the caller is not the patient, what is their name? N/A ? Ask the patient WHO referred them to this specialty: Success ? FIRST and LAST NAME of SPECIALIST PATIENT is seeing: Physical Therapy ? What specialty is this? Physiatry ? DIAGNOSIS Patient is being seen for (Not a body part or a procedure): Tight ITB and greater trochanteric bursitis on the left ? Have you seen this SPECIALIST for this PROBLEM/DX before?YES current patient, ran out of visits. ? If YES, when: n/a ? Have you checked REVIEW or the APPT DESK to see if this referral has already been done or has visits left? yes ? Is this visit:another office visit for therapy. ? Address of Specialist: [address] [place] [address] [place] [address] ? Phone # of Specialist:[phone] ? Fax #: (if applicable): [phone] ? Does patient have an appointment scheduled?: ? Date of appointment- (including a retro-request): PT STATES SHE NEEDS MORE REFERALLS TO BE SEEN. ? Is this appointment related to: Not MVA, WC or Surgery related ?? documented in this encounter Plan of Treatment Not on file documented as of this encounter Visit Diagnoses Not on filedocumented in this encounter Care Teams Embedded Case Manager Relationship Specialty Start Date End Date Lotus Peraza MD PCP - General Internal Medicine 07/28/16 documented as of this encounter
--- OUTSIDE RECORDS SUMMARY | 2025-02-18 17:57 | XMS_ITS | Clinical Summary ---
Author Organization [address] [place] [address] [place] [phone] Phone Care Team Providers Care Supervisor Case Loading Name Role Phone Lotus Freed MD Primary Care Provider [phone] Allergies Active Allergy Reactions Criticality Noted Date [...] by mouth once a week. 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 [address] [facility] [address] [place] [address] Chest pain; Abnormal EKG; Abnormal result of other cardiovascular function study from Last 3 Months Immunizations Name Administration Dates Next Due Influenza trivalent, with pr eservative (Fluzone; Afluria) 6mo and older 07/29/2019 Surgical History Surgery Date Site/Laterality Comments OTHER SURGICAL HISTORY PROCEDURE: [place] ANTERIOR COLPORRAPHY RPR CYSTOCELE W/CYSTO; COMMENT: x 2 OOPHORECTOMY PROCEDURE: HISTORICAL OOPHORECTOMY OTHER SURGICAL HISTORY PROCEDURE: [place] REPAIR RECTOCELE SEPARATE PROCEDURE OTHER SURGICAL HISTORY [...] 05/13/2021 05/13/20 19, 03/17/2018, 03/06/2017 COVID-19 Vaccine (4 - season) 2024 10/28/2021, 02/26/2021, 02/04/2021 Influenza Vaccine [...] % Breast cancer risk category Low (<15%) Result [facility] Rita Carlson MD IMG XR PROCEDURES Final Result * Hepatitis C Screening (11/03/2016) Hepatitis C Screening abstracted Historical Provider HEALTH MAINTENANCE Final Result * Colonoscopy (04/20/2012) Colonoscopy no interpretation , abstracted Comment:per pt Anatomical Region Laterality Modality Other Result [facility] Historical Provider HEALTH MAINTENANCE Final Result from Last 3 Months or Most Recently Relevant to Health Maintenance Insurance MEDICARE [facility] Care Teams Supervisor Case Loading Relationship Specialty Start Date End Date Lotus Freed MD PCP - General Endocrinology 12/24/24
--- OUTSIDE RECORDS SUMMARY | 2025-02-18 17:57 | XMS_ITS | Encounter Summary ---
Author Organization [facility] Address [address] [place] [address] Care Team Providers Care Whale Fisherman Name Role Phone Lotus Peraza MD Primary Care Provider Unavaila ble Reason for Visit * Reason Comments E-prescribe Rx Request Encounter Details Date Type Department Care Team Description 05/27/2019 Refill Medicine/Pediatrics - [address] [phone] Cony Gross PA-C E-prescribe Rx Request Social History Tobacco Use Types Packs/Day Years [...] on filedocumented in this encounter Care Teams Whale Fisherman Relationship Specialty Start Date End Date Lotus Peraza MD PCP - General Internal Medicine 07/28/16 documented as of this encounter
== END 2025-02-18 15:03 | disposition home or self-care (01) ==
LOC: HO.LAB 15:02
PROVIDERS: PCP Internal Medicine; Visit Provider Internal Medicine
DX: R94.39 Abnormal result of other cardiovascular function study (principal); I25.10 Atherosclerotic heart disease of native coronary artery without angina pectoris
CPT/HCPCS: 36415; 80048

== ENCOUNTER → 2025-02-27 10:33 | Outpatient (REF) | payer BC, SELFPAY ==
--- NOTE | 2025-02-27 10:37 | CA_ITS ---
Transthoracic Echocardiogram Patient (Last, First, Middle): Danette Juárez, Gender: Female Date of : 1955 Age: 69 Procedure Date: 02/27/2025 Procedure Type: Transthoracic Echocardiogram Location: OP Height: 170.18 cm Weight: 90.27 kg BSA: 2.02 m2 Heart Rate: 56 bpm BP: 165 / 95 mmHg Occupational Therapy Instructor: MARQUEZ/KELLIE Referring MD: Myles Fitzpatrick MD Layer Out Plate Glass: Linden Kuhn MD Symptoms: I25.10 - Atherosclerotic heart disease of [place] coronary artery without... Study Quality: Adequate ECG Rhythm: Sinus Conclusions: - 1. Normal LV ejection fraction 55-60% with grade 1 diastolic dysfunction 2. Mild aortic regurgitation 3. Mildly dilated ascending aorta at 4.3 cm 4. Normal RV systolic pressure at 21 mm Hg 5. No pericardial effusion Findings Left Ventricle Normal left ventricular size, thickness, and systolic function. The visually estimated ejection fraction is between 55-60%. Spectral Doppler is indicative of an impaired relaxation filling pattern. E/E prime ratio is <8, consistent with normal filling pressures. Evidence suggests grade I (mild) diastolic dysfunction. Wall Motion Rest Echo Findings The basal inferior and basal inferoseptal segments are hypokinetic. All other scored wall segments showed normal motion. Right Ventricle Normal right ventricular cavity size and systolic function. Atria The left atrium is mildly dilated. There is lipomatous hypertrophy of the interatrial septum. There is no evidence of interatrial shunt. The right atrium is normal in size. Aortic Valve There is mild calcification of the aortic valve. There is no aortic valve stenosis. There is mild aortic valve regurgitation. Mitral Valve There is mild anterior and posterior mitral leaflet thickening. There is mild mitral annular calcification. There is trace mitral valve regurgitation. There is no mitral valve stenosis. Pulmonic Valve The pulmonic valve is likely normal. There is trace to mild pulmonic valve regurgitation. Tricuspid Valve Normal tricuspid valve structure. There is trace tricuspid valve regurgitation. The right ventricular systolic pressure is normal. The right ventricular systolic pressure is 21 mmHg. Normal right atrial pressure. There is no evidence of pulmonary hypertension. Great Vessels The pulmonary artery was not well visualized. There is mild dilatation of the ascending aorta measuring 4.30 cm. Venous The inferior vena cava is normal in size and collapses greater than 50% with inspiration. Pericardium/Pleural There is no evidence of pericardial effusion. Prior Study Comparison No prior study available for comparison. Measurements 2D Linear Measurements IVSd: 0.91 0.6-0.9/0.6-1.0 cm LVIDd: 4.94 3.9-5.3/4.2-5.9 cm LVIDd Index: 2.45 2.4-3.2/2.2-3.1 cm/m2 LVIDs: 3.26 2.0-3.6 cm LVPWd: 0.99 0.7-1.1 cm LA Diam: 3.50 2.7-3.8/3.0-4.0 cm LAIDs Index: 1.73 1.5-2.3 cm/m2 LV Mass: 208.31 67-162/88-224 g LV Mass Index: 103.13 43-95/49-115 g/m2 LVOT Diam: 2.20 3.0+(-)1.3 cm 2D Systolic Function EF 4C: 56.20 >55% EF 2C: 63.00 >55% EF BiP: 59.60 >55% Mitral Valve MV Pk E: 0.51 MV PK A: 0.79 MV Decel Time: 350.00 E/A: 0.60 E'Lateral: 7.18 E'Medial: 4.79 E/E' Med: 10.60 E/E' Lat: 7.10 PHT: 102.00 MVA PHT: 2.16 Decel Holmes: 1.46 Aortic Valve AoV Pk Shreyas: 1.36 AoV Mn Shreyas: 0.97 AoV VTI: 0.32 AoV Pk Grad: 7.00 Aov Mn Grad: 4.00 LINDA Cont.VTI: 2.76 AI Pk Shreyas: 4.79 AI VTI: 2.80 AI Holmes: 1.72 AI Alias Shreyas: 0.39 AI RV - PISA: 22.00 ERO - PISA: 8.00 LVOT LVOT Pk Shreyas: 0.93 LVOT Mn Shreyas: 0.63 LVOT VTI: 0.24 LVOT Pk Grad: 3.00 LVOT Mn Grad: 2.00 LVOT Diam: 2.20 LVOT Area: 3.80 Diastolic Function MV Pk E: 0.51 MV Pk A: 0.79 E/A: 0.60 E'Medial: 4.79 E/E' Med: 10.60 E' Laterial: 7.18 E/E' Lat: 7.10 Right Ventricle TAPSE (mm): 20.80 TVS' Shreyas: 11.70 Tricuspid Valve TR Pk Shreyas: 2.10 TR Pk Grad: 18.00 RA Press: 3.00 RVSP: 21.00 Great Vessels Aorta Sinus of Valsalva: 3.90 2.0-3.5 cm Ao Asc: 4.30 2.1-3.4 cm Ao Arch: 3.50 Pulmonary Valve PV Pk Shreyas: 0.79 Peak PV Grad: 2.00 Updated in Other Vendor System with Status of Final Linden Kuhn MD electronically signed on 02/27/2025 4:48:56 PM with status of Final
--- OUTSIDE RECORDS SUMMARY | 2025-02-27 12:30 | XMS_ITS | Encounter Summary ---
Author Organization [facility] Address [address] [place] [address] Care Team Providers Care Train Control Technician Name Role Phone Lotus Peraza MD Primary Care Provider Unavaila ble Reason for Visit * Reason Onset Date Comments radiology 05/03/2017 Xray Encounter Details Date Type Department Care Team Description 05/03/[address] [address] Lotus Peraza MD radiology (Xray) Social History [...] on filedocumented in this encounter Care Teams Train Control Technician Relationship Specialty Start Date End Date Lotus Peraza MD PCP - General Internal Medicine 07/28/16 documented as of this encounter
--- OUTSIDE RECORDS SUMMARY | 2025-02-27 12:30 | XMS_ITS | Encounter Summary ---
Author Organization [facility] Address [address] [place] [address] Care Team Providers Care Logistics Management Specialist Name Role Phone Effie Yarbrough Primary Care Provider Lotus Mccarthy MD Primary Care Provider Reji dean Encounter Details Date Type Department Care Team Description 06/16/2016 Transfer Records Medical Records [address] [place] [address] Abstract, Provider Social History Tobacco Use Types Packs/Day Years Used Date Smoking Tobacco: Never Assessed Sex Assigned at Date Recorded Not on file documented as of this encounter Plan of Treatment Not on file documented as of this encounter Visit Diagnoses Not on filedocumented in this encounter Care Teams Logistics Management Specialist Relationship Specialty Start Date End Date Effie Yarbrough PCP - General Family Practice 05/02/16 07/27/16 Lotus Peraza MD PCP - General Internal Medicine 07/28/16 documented as of this encounter
--- OUTSIDE RECORDS SUMMARY | 2025-02-27 12:30 | XMS_ITS | Encounter Summary ---
Author Organization [facility] Address [address] [place] [address] Care Team Providers Care Shot Blast Equipment Operator Name Role Phone Lotus Peraza MD Primary Care Provider Reji dean Encounter Details Date Type Department Care Team Description 04/27/2017 Slip Cover Maker Report Medical Records [address] [place] [address] Abstract, Provider Social History Tobacco Use Types [...] on filedocumented in this encounter Care Teams Shot Blast Equipment Operator Relationship Specialty Start Date End Date Lotus Peraza MD PCP - General Internal Medicine 07/28/16 documented as of this encounter
--- OUTSIDE RECORDS SUMMARY | 2025-02-27 12:30 | XMS_ITS | Encounter Summary ---
Author Organization [facility] Address [address] [place] [address] Care Team Providers Care Tacker Off Name Role Phone Lotus Peraza MD Primary Care Provider Reji dean Encounter Details Date Type Department Care Team Description 03/16/2020 Orders Only Medicine/Pediatrics - [address] [phone] Lotus Peraza MD Social History Tobacco Use [...] on filedocumented in this encounter Care Teams Tacker Off Relationship Specialty Start Date End Date Lotus Peraza MD PCP - General Internal Medicine 07/28/16 documented as of this encounter
--- OUTSIDE RECORDS SUMMARY | 2025-02-27 12:30 | XMS_ITS | Encounter Summary ---
Author Organization [facility] Address [address] [place] [address] Care Team Providers Care Baby Formula Worker Name Role Phone Lotus Peraza MD Primary Care Provider Reji dean Encounter Details Date Type Department Care Team Description 05/05/2017 [facility] Medical Records [address] [place] [address] Abstract, Provider Social History Tobacco Use Types [...] on filedocumented in this encounter Care Teams Baby Formula Worker Relationship Specialty Start Date End Date Lotus Peraza MD PCP - General Internal Medicine 07/28/16 documented as of this encounter
--- OUTSIDE RECORDS SUMMARY | 2025-02-27 12:30 | XMS_ITS | Encounter Summary ---
Author Organization [facility] Address [address] [place] [address] Care Team Providers Care Whizzer Hand Name Role Phone Lotus Peraza MD Primary Care Provider Reji dean Encounter Details Date Type Department Care Team Description 01/03/2017 Transfer Records Medical Records [address] [place] [address] Abstract, Provider Social History Tobacco Use Types [...] on filedocumented in this encounter Care Teams Whizzer Hand Relationship Specialty Start Date End Date Lotus Peraza MD PCP - General Internal Medicine 07/28/16 documented as of this encounter
--- OUTSIDE RECORDS SUMMARY | 2025-02-27 12:30 | XMS_ITS | Clinical Summary ---
Author Organization [address] [place] [address] [place] [phone] Phone Care Team Providers Care Juvenile Detention Officer Name Role Phone Lotus Freed MD Primary Care Provider [phone] Allergies Active Allergy Reactions Criticality Noted Date [...] Description 12/24/2024 12:00 PM EST Ancillary Procedure [facility] [address] [facility] [address] [place] [address] Chest pain; Abnormal EKG; Abnormal result of other cardiovascular function study from Last 3 Months Immunizations Name Administration Dates Next Due Influenza trivalent, with pr eservative (Fluzone; Afluria) 6mo and older 07/29/2019 Surgical History Surgery Date Site/Laterality Comments OTHER SURGICAL HISTORY PROCEDURE: PA ANTERIOR COLPORRAPHY RPR CYSTOCELE W/CYSTO; COMMENT: x 2 OOPHORECTOMY PROCEDURE: HISTORICAL OOPHORECTOMY OTHER SURGICAL HISTORY PROCEDURE: PA REPAIR RECTOCELE SEPARATE PROCEDURE OTHER SURGICAL HISTORY [...] Vaccines (1 of 2) 2006 RSV Immunization Adult Patients (1 - Risk 60-74 years 1-dose series) 2016 Breast Cancer Screening 05/13/2021 05/13/20 19, 03/17/2018, 03/06/2017 COVID-19 Vaccine ( - season) 2024 10/28/2021, 02/26/2021, 02/04/2021 Cholesterol Screening (Lipid Panel) 12/17/2024 10/03/2019 Colorectal Cancer Screening: Colonoscopy 12/17/2024 04/20/2012 Depression Screening 12/17/2024 Falls Risk Assessment 12/17/2024 Osteoporosis Screening (Bone Density Screening) 12/17/2024 Social Influencers of Health Screening 12/17/2024 Influenza Vaccine (Season Ended) 2025 08/03/2020, 07/29/2019, 08/28/2018, Additional history exists DTaP,Tdap,and Td Vaccines (3 - Td or [...] age to complete this topic Meningococcal B Vaccine Aged Out No l onger eligible based on patient's age to complete [...] Breast cancer risk category Low (<15%) Result [facility] Rita Carlson MD IMG XR PROCEDURES Final Result * Hepatitis C Screening (11/03/2016) Hepatitis C Screening abstracted Result [facility] Historical Provider HEALTH MAINTENANCE Final Result * Colonoscopy (04/20/2012) Colonoscopy no interpretation , abstracted Comment:per pt Anatomical Region Laterality Modality Other Historical Provider HEALTH MAINTENANCE Final Result from Last 3 Months or Most Recently Relevant to Health Maintenance Insurance MEDICARE [facility] Care Teams Juvenile Detention Officer Relationship Specialty Start Date End Date Lotus Freed MD PCP - General Endocrinology 12/24/24
--- OUTSIDE RECORDS SUMMARY | 2025-02-27 12:30 | XMS_ITS | Encounter Summary ---
Author Organization [facility] Address [address] [place] [address] Care Team Providers Care Industrial Spraypainter Name Role Phone Lotus Peraza MD Primary Care Provider Reji dean Encounter Details Date Type Department Care Team Description 11/04/2016 Controlled Substance Contract with Plan Medical Records [address] [place] [address] Abstract, Provider Social History Tobacco Use Types [...] on filedocumented in this encounter Care Teams Industrial Spraypainter Relationship Specialty Start Date End Date Lotus Peraza MD PCP - General Internal Medicine 07/28/16 documented as of this encounter
--- OUTSIDE RECORDS SUMMARY | 2025-02-27 12:30 | XMS_ITS | Encounter Summary ---
Author Organization [facility] Address [address] [place] [address] Care Team Providers Care Funeral Director'S Assistant Name Role Phone Lotus Peraza MD Primary Care Provider Reji dean Encounter Details Date Type Department Care Team Description 04/20/2017 Relations Mgr Report Medical Records [address] [place] [address] Abstract, Provider Social History Tobacco Use Types [...] on filedocumented in this encounter Care Teams Funeral Director'S Assistant Relationship Specialty Start Date End Date Lotus Peraza MD PCP - General Internal Medicine 07/28/16 documented as of this encounter
--- OUTSIDE RECORDS SUMMARY | 2025-02-27 12:30 | XMS_ITS | Encounter Summary ---
Author Organization [facility] Address [address] [place] [address] Care Team Providers Care Assistant To The Dean Name Role Phone Lotus Peraza MD Primary Care Provider Reji dean Encounter Details Date Type Department Care Team Description 06/19/2018 [facility] Medical Records [address] [place] [address] Abstract, Provider Social History Tobacco Use Types [...] on filedocumented in this encounter Care Teams Assistant To The Dean Relationship Specialty Start Date End Date Lotus Peraza MD PCP - General Internal Medicine 07/28/16 documented as of this encounter
--- OUTSIDE RECORDS SUMMARY | 2025-02-27 12:30 | XMS_ITS | Encounter Summary ---
Author Organization [facility] Address [address] [place] [address] Care Team Providers Care Detective Automobile Section Name Role Phone Lotus Peraza MD Primary Care Provider Reji dean Encounter Details Date Type Department Care Team Description 09/12/2016 Hereditary Cancer Qu iz Results Medical Records [address] [place] [address] Abstract, Provider Social History Tobacco Use Types [...] on filedocumented in this encounter Care Teams Detective Automobile Section Relationship Specialty Start Date End Date Lotus Peraza MD PCP - General Internal Medicine 07/28/16 documented as of this encounter
--- OUTSIDE RECORDS SUMMARY | 2025-02-27 12:30 | XMS_ITS | Encounter Summary ---
Author Organization [facility] Address [address] [place] [address] Care Team Providers Care Hematology Supervisor Name Role Phone Lotus Peraza MD Primary Care Provider Reji dean Encounter Details Date Type Department Care Team Description 07/16/2020 Orders Only Medicine/Pediatrics - [address] [phone] Lotus Peraza MD Nausea (Primary Dx) Social History Tobacco Use Types [...] of this encounter Results * COVID-19 TESTING (07/16/2020) 07/16/2020 Lotus Peraza MD LAB Performing Organization Address City/State/[facility] Co de Phone Number [employer] documented in this encounter Visit Diagnoses Diagnosis Nausea- Primary Nausea alone documented in this encounter Care Teams Hematology Supervisor Relationship Specialty Start Date End Date Lotus Peraza MD PCP - General Internal Medicine 07/28/16 documented as of this encounter
--- OUTSIDE RECORDS SUMMARY | 2025-02-27 12:31 | XMS_ITS | Encounter Summary ---
Author Organization [facility] Address [address] [place] [address] Care Team Providers Care Stock Clerk Name Role Phone Lotus Peraza MD Primary Care Provider Reji dean Encounter Details Date Type Department Care Team Description 01/18/2020 Orders Only Medicine/Pediatrics - [address] [phone] Lotus Peraza MD Chronic maxillary sinusitis (Primary Dx); Acute recurrent maxillary sinusitis Social History Tobacco Use Types Packs/Day Years Used Date Smoking Tobacco: Former Cigarettes 40 Q uit: 09/01/2008 Smokeless Tobacco: Never Alcohol Use Standard Drinks/Week Comments No 0 (1 standard drink = 0.6 oz pur e alcohol) Sex Assigned at Date Recorded Not on file documented as of this encounter Plan of Treatment Not on file documented as of this encounter Visit Diagnoses Diagnosis Chronic maxillary sinusitis- Primary Acute recurrent maxillary sinusitis Acute maxillary sinusitis documented in this encounter Care Teams Stock Clerk Relationship Specialty Start Date End Date Lotus Peraza MD PCP - General Internal Medicine 07/28/16 documented as of this encounter
--- OUTSIDE RECORDS SUMMARY | 2025-02-27 12:31 | XMS_ITS | Encounter Summary ---
Author Organization [facility] Address [address] [place] [address] Care Team Providers Care Auto Body Mechanic Name Role Phone Lotus Peraza MD Primary Care Provider Reji dean Encounter Details Date Type Department Care Team Description 05/18/2017 Release of Information Medical Records [address] [place] [address] Abstract, Provider Social History Tobacco Use Types [...] on filedocumented in this encounter Care Teams Auto Body Mechanic Relationship Specialty Start Date End Date Lotus Peraza MD PCP - General Internal Medicine 07/28/16 documented as of this encounter
--- OUTSIDE RECORDS SUMMARY | 2025-02-27 12:31 | XMS_ITS | Encounter Summary ---
Author Organization [facility] Address [address] [place] [address] Care Team Providers Care Social Work Assistant Name Role Phone Lotus Peraza MD Primary Care Provider Reji dean Encounter Details Date Type Department Care Team Description 07/21/2020 Orders Only Medicine/Pediatrics - [address] [address] Lotus Peraza MD Nausea Social History Tobacco [...] TESTING (07/16/2020) 07/16/2020 Lotus Peraza MD LAB [employer] documented in this encounter Visit Diagnoses Diagnosis Nausea Nausea alone documented in this encounter Care Teams Social Work Assistant Relationship Specialty Start Date End Date Lotus Peraza MD PCP - General Internal Medicine 07/28/16 documented as of this encounter
--- OUTSIDE RECORDS SUMMARY | 2025-02-27 12:31 | XMS_ITS | Encounter Summary ---
Author Organization [facility] Address [address] [place] [address] Care Team Providers Care Paid Internship Name Role Phone Lotus Peraza MD Primary Care Provider Reji dean Encounter Details Date Type Department Care Team Description 09/02/2020 Orders Only Medicine/Pediatrics - [address] [phone] Lotus Peraza MD Exposure to COVID-19 virus [...] DETECTED NOT DETECT 09/03/2020 10:40 AM EDT [facility] Comment: Disclaimer: The manner in which this information is used to guide patient care is the responsibility of the healthcare provider. Testing was performed using the Apex Guard M2000 SARS-CoV-2 test. 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
--- OUTSIDE RECORDS SUMMARY | 2025-02-27 12:31 | XMS_ITS | Encounter Summary ---
Author Organization [facility] Address [address] [place] [address] Care Team Providers Care [facility] Name Role Phone Lotus Peraza MD Primary Care Provider Reji dean Encounter Details Date Type Department Care Team Description 05/19/2017 Technical Sales Advisor Report Medical Records [address] [place] [address] Cirilo Rowe PA-C Social History Tobacco Use Types Packs/Day Years [...] on filedocumented in this encounter Care Teams [facility] Relationship Specialty Start Date End Date Lotus Peraza MD PCP - General Internal Medicine 07/28/16 documented as of this encounter
--- OUTSIDE RECORDS SUMMARY | 2025-02-27 12:31 | XMS_ITS | Encounter Summary ---
Author Organization [facility] Address [address] [place] [address] Care Team Providers Care Cutting And Creasing Press Operator Name Role Phone Lotus Peraza MD Primary Care Provider Reji dean Encounter Details Date Type Department Care Team Description 01/06/2020 Orders Only Medicine/Pediatrics - [address] [phone] Lotus Peraza MD Social History Tobacco Use [...] on filedocumented in this encounter Care Teams Cutting And Creasing Press Operator Relationship Specialty Start Date End Date Lotus Peraza MD PCP - General Internal Medicine 07/28/16 documented as of this encounter
--- OUTSIDE RECORDS SUMMARY | 2025-02-27 12:31 | XMS_ITS | Encounter Summary ---
Author Organization [facility] Address [address] [place] [address] Care Team Providers Care Backbreaker Name Role Phone Lotus Peraza MD Primary Care Provider Unavaila ble Reason for Visit * Reason Comments E-prescribe Rx Request Encounter Details Date Type Department Care Team Description 05/27/2019 Refill Medicine/Pediatrics - [address] [phone] Cony Gross PA-C E-prescribe Rx Request Social [...] on filedocumented in this encounter Care Teams Backbreaker Relationship Specialty Start Date End Date Lotus Peraza MD PCP - General Internal Medicine 07/28/16 documented as of this encounter
--- OUTSIDE RECORDS SUMMARY | 2025-02-27 12:31 | XMS_ITS | Encounter Summary ---
Author Organization [facility] Address [address] [place] [address] Care Team Providers Care Kicking Machine Operator Name Role Phone Lotus Peraza MD Primary Care Provider Reji dean Encounter Details Date Type Department Care Team Description 03/22/2019 PNO Controlled Substance Contract Medical Records [address] [place] [address] Abstract, Provider Social History Tobacco Use Types [...] on filedocumented in this encounter Care Teams Kicking Machine Operator Relationship Specialty Start Date End Date Lotus Peraza MD PCP - General Internal Medicine 07/28/16 documented as of this encounter
--- OUTSIDE RECORDS SUMMARY | 2025-02-27 12:31 | XMS_ITS | Encounter Summary ---
Author Organization [facility] Address [address] [place] [address] Care Team Providers Care Dispatcher Chief Oil Name Role Phone Lotus Peraza MD Primary Care Provider Reji dean Encounter Details Date Type Department Care Team Description 06/18/2019 [facility] Medical Records [address] [place] [address] Abstract, Provider Social History Tobacco Use Types [...] on filedocumented in this encounter Care Teams Dispatcher Chief Oil Relationship Specialty Start Date End Date Lotus Peraza MD PCP - General Internal Medicine 07/28/16 documented as of this encounter
== END ==
LOC: HO.CARD 10:33
PROVIDERS: PCP Internal Medicine; Visit Provider Internal Medicine
DX: I25.10 Atherosclerotic heart disease of native coronary artery without angina pectoris (principal); R00.2 Palpitations; R94.39 Abnormal result of other cardiovascular function study
CPT/HCPCS: 93246; 93306

== ENCOUNTER → 2025-02-27 10:37 | Outpatient (BNV) | payer BC, SELFPAY | PROVIDERS: PCP Internal Medicine; Visit Provider Internal Medicine Cardiovascular Disease | DX: I35.1 Nonrheumatic aortic (valve) insufficiency (principal); I37.1 Nonrheumatic pulmonary valve insufficiency | CPT/HCPCS: 93306 ==

== ENCOUNTER 2025-03-18 12:53 | Outpatient (AMB) | payer BC, SELFPAY ==
--- NOTE | 2025-03-18 13:09 | MHC.OFFVIS ---
Vital Signs 03/18/25 13:12 Height 5 ft 7 in Weight 200 lb 2.876 oz BMI 31.3 BP 120/90 H Blood Pressure Location Lt brachial Position Sitting Pulse 70 Pulse Source Pulse Oximeter Intake Visit Reasons: f/up with test results Ceiling Installer Required: No Accompanied by: Daughter Allergies codeine Allergy (Severe, Verified 12/30/24 08:35) Stomach Upset Medication List - Last Reconciled 03/18/25 by Myles Fitzpatrick MD atorvastatin 80 mg PO DAILY cholecalciferol (vitamin D3) PO diazepam (Valium) 10 mg (2 x 5 mg) PO BEDTIME PRN 30 days glucosamine-chondroitin 1 tab PO DAILY levocetirizine 5 mg PO DAILY metoprolol succinate ER (Toprol XL) 50 mg PO DAILY metoprolol tartrate 25 mg PO BID PRN tramadol 50 mg PO Q8H PRN 28 days valacyclovir (Valtrex) 1,000 mg PO DAILY HPI Comments Details: Danette returns for follow-up. Recently seen in consultation regarding an abnormal stress test. It seems that she was having episodes of palpitations and left arm numbness. However, she did not have any clear angina. No previous history of coronary disease or myocardial infarction. The initial episodes of profound palpitations where she was highly symptomatic have resolved completely but she still gets some intermittent episodes where she gets brief fluttering. Not clear if it is an atrial arrhythmia like atrial fibrillation. Any case, she underwent an ETT in [place] and following that she underwent a pharmacological stress test at [facility]. Reported to be abnormal and hence she is referred here. It seems that she has gained a lot of weight in the last few months. Otherwise, as mentioned about does not have any clear-cut angina. Nonspecific left arm numbness which can be present any time but mostly when she is lying down at nighttime. That sounds rather neurological. Since last seen, she has completed a coronary CTA. [facility] Medical History Cataract Heart palpitations Asthma Back pain HSV (herpes simplex virus) infection Anxiety Surgical History Hx of left cataract extraction (12/16/24) Family History Father Hx of CABG Social History Housing: Condominium Are you a primary career resource technician to a significant other at home: No Do you presently have visiting nurse or other home services: No Alcohol intake: current Alcohol intake frequency: a few times a month Patient Tobacco Use Status: Former Tobacco user Tobacco use type: Cigarette Cigarette Packs Per Day: 2 Years Smoked: 15 e-Cigarette/Vaping Use: Never Used Second Hand Smoke Exposure: No service: No Current occupational status: employed and retired 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 Current occupational exposures/hazards: No Cognitive needs: No Hearing needs: No Vision needs: Yes Review of Systems Const Denies chills, Denies fatigue, Denies fever(s), Denies frequent falls, Denies weakness, Denies weight gain and Denies weight loss ENT Denies dizziness Card Denies chest pain, Denies leg edema, Denies lightheadedness, Denies palpitations, Denies dyspnea and Denies dyspnea on exertion Resp Denies cough, Denies dyspnea and Denies dyspnea on exertion GI Denies hematochezia Musc Denies abnormal gait, Denies muscle weakness, Denies numbness, Denies radiating pain into limb and Denies tingling Neuro Denies abnormal gait, Denies dizziness, Denies frequent falls, Denies numbness, Denies tingling and Denies weakness Endo Denies fatigue and Denies palpitations Physical Exam Vital Signs: Last Vital Signs Pulse 70 03/18/25 13:12 BP 120/90 H 03/18/25 13:12 BMI result Body Mass Index 31.3 Const General: comfortable and no acute distress Orientation/consciousness: patient oriented x3 HEENT Other: Unremarkable Head: Yes normal to inspection Neck Neck: Yes normal visual inspection Chest Chest palpation & inspection: normal inspection of the chest Resp Auscultation: clear to auscultation bilaterally Cardio Palpation: normal PMI Heart sounds: S1 normal heart sound present, S2 normal heart sound present, no gallops, no murmurs and no rubs GI Palpation (GI): Soft to palpation Back/Spine/Pelvis Other: unremarkable Skin General skin exam: no rashes or lesions noted Neuro General: patient oriented x3 Extrem General: Yes normal to inspection Psych Mental Status: mental status grossly normal Assessment & Plan Assessment & Plan (1) Atherosclerotic cardiovascular disease: Code(s): I25.10 - Atherosclerotic heart disease of [place] coronary artery without angina pectoris Category: Medical Plan: In the stress test, patient was able to reach 6.3 METS on Brian protocol. Reached only 73% of maximum predicted heart rate. However, no angina at that workload. Had reported shortness of breath and had isolated PACs/PVCs. No EKG evidence of ischemia. In the pharmacological stress perfusion imaging study, small size, very mild intensity reversible defect in the basal anterolateral wall. Stress LVEF 63%. Resting LVEF 58%. LAD calcification on the CAT scan images. In the coronary CTA, < 50% stenosis in the mid LAD, mid circumflex, 1st obtuse marginal. Clinically, she has got no angina. Risk factor modification only. Start baby aspirin. Continue statins. Check lipids. (2) Palpitations: Code(s): R00.2 - Palpitations Category: Medical Plan: Data reviewed in great detail. In the Holter monitor itself, there is only sinus tachycardia and no clear atrial arrhythmias. However, when I review the Apple watch recordings, cannot exclude atrial fibrillation some strips. There is lot of irregularity as well as artifact and hence difficult to say if it is atrial fibrillation versus frequent PACs with superimposed artifact. The watch itself reads it as atrial fibrillation. Overall, sinus tachycardia, possible atrial fibrillation versus frequent PACs. We discussed about further evaluation. We discussed about empiric anticoagulation presuming that she indeed has paroxysmal atrial fibrillation as the symptoms do correlate with that diagnosis. She states that she would rather have something more definitive and hence we discussed longer-term monitoring with implantable loop recorder. She is willing to do that. May arrange. With regard to medications, start Toprol-XL 50 mg daily. She can take an extra metoprolol dose if she still gets palpitations beyond this. If there is clear evidence of atrial fibrillation on implantable loop recorder, then we can start anticoagulation. Patient and daughter agree with this plan. (3) Essential hypertension: Code(s): I10 - Essential (primary) hypertension Category: Medical Plan: Borderline blood pressures. Beta-blockers as above should help. (4) Ascending aorta dilatation: Code(s): I77.810 - Thoracic aortic ectasia Category: Medical Plan: Ascending aortic size 4.3 cm on the echocardiogram. In the CT scan, enlarged aortic root at 4.1 cm. Ascending aorta 4.2 cm. To be monitored. Plan Discussion Notes During our discussion, I reviewed the potential diagnosis of atrial fibrillation, highlighting the significance of continuous cardiac monitoring to confirm this. I explained the rationale behind transitioning metoprolol to a daily dose to steady the heart rate and the possible role of an implantable loop recorder for continuous cardiac assessment over a possible three-year period. This device can provide definitive documentation if an arrhythmia like atrial fibrillation is present. I discussed anticoagulation therapy such as Eliquis, indicating that it would only be prescribed if atrial fibrillation was clearly documented, considering its lifelong necessity and associated risks. I addressed coronary artery disease and related chest pain, emphasizing that current findings do not necessitate invasive intervention. Patient and family members were also educated on lifestyle modifications, notably dietary and exercise, and the role of aspirin until further findings suggest the need for anticoagulation. Both parties consented to the plan, agreeing to future follow-ups contingent on home monitoring outcomes. Patient was informed and verbally consented to the use of an ambient scribe for clinic note documentation during this visit. Total time spent including review of smart watch data, test results, counseling, documentation, coordination of care-50 minutes. Orders: Orders Liver Panel Today E78.2 - Mixed hyperlipidemia, I25.10 - Atherosclerotic heart disease of [place] coronary artery without angina pectoris LDL Cholesterol Direct Today E78.2 - Mixed hyperlipidemia Lipid Panel Today E78.2 - Mixed hyperlipidemia, E78.5 - Hyperlipidemia, unspecified Medications: New metoprolol succinate ER (Toprol XL) 50 mg PO DAILY 90 tabs 1RF Patient Instructions: - Take metoprolol 50 mg once daily to manage heart rate. - Take aspirin (81 mg) daily. - Monitor blood pressure regularly at home. - Return for blood work as instructed after a 12-hour fast. - Increase physical activity gradually, as tolerated. - Observe dietary adjustments to support heart health. - Seek medical attention if experiencing new or worsening chest pain, severe dizziness, or palpitations. Coding Level of Care Code Est Pt Level 5 (87295) Complex EM visit Add On G2211 Diagnoses Atherosclerotic cardiovascular disease I25.10 Palpitations R00.2 Essential hypertension I10 Ascending aorta dilatation I77.810
[2025-03-18 13:12] VITALS: BP 120/90; PULSE 70; BMI 31.3
--- OUTSIDE RECORDS SUMMARY | 2025-03-18 14:44 | XMS_ITS | Clinical Summary ---
Author Organization [address] [place] [address] [place] [phone] Phone Care Team Providers Care Passenger Coach Driver Name Role Phone Lotus Freed MD Primary Care Provider [phone] Allergies Active Allergy Reactions Criticality Noted Date [...] Description 12/24/2024 12:00 PM EST Ancillary Procedure [facility] [address] [facility] [address] [place] [address] Chest pain; Abnormal EKG; Abnormal result of other cardiovascular function study from Last 3 Months Immunizations Name Administration Dates Next Due Influenza trivalent, with pr eservative (Fluzone; Afluria) 6mo and older 07/29/2019 Surgical History Surgery Date Site/Laterality Comments OTHER SURGICAL HISTORY PROCEDURE: [place] ANTERIOR COLPORRAPHY RPR CYSTOCELE W/CYSTO; COMMENT: x 2 OOPHORECTOMY PROCEDURE: HISTORICAL OOPHORECTOMY OTHER SURGICAL HISTORY PROCEDURE: [place] REPAIR RECTOCELE SEPARATE PROCEDURE OTHER SURGICAL HISTORY [...] Breast cancer risk category Low (<15%) Result [facility] Rita Carlson MD IMG XR PROCEDURES Final Result * Hepatitis C Screening (11/03/2016) Hepatitis C Screening abstracted Result [facility] Historical Provider HEALTH MAINTENANCE Final Result * Colonoscopy (04/20/2012) Colonoscopy no interpretation , abstracted Comment:per pt Anatomical Region Laterality Modality Other Historical Provider HEALTH MAINTENANCE Final Result from Last 3 Months or Most Recently Relevant to Health Maintenance Insurance MEDICARE [facility] Care Teams Passenger Coach Driver Relationship Specialty Start Date End Date Lotus Freed MD PCP - General Endocrinology 12/24/24
== END 2025-03-18 13:59 | disposition home or self-care (01) ==
LOC: HO.HCS 12:53
PROVIDERS: PCP Internal Medicine; Visit Provider Internal Medicine
DX: I25.10 Atherosclerotic heart disease of native coronary artery without angina pectoris (principal); R00.2 Palpitations; I10 Essential (primary) hypertension; I77.810 Thoracic aortic ectasia
CPT/HCPCS: 99215

== ENCOUNTER → 2025-03-18 12:53 | Outpatient (BNVA) | payer BC, SELFPAY | PROVIDERS: PCP Internal Medicine; Visit Provider Internal Medicine ==

== ENCOUNTER 2025-04-04 12:20 | Outpatient (REF) | payer BC, SELFPAY ==
--- OUTSIDE RECORDS SUMMARY | 2025-04-04 12:23 | XMS_ITS | Encounter Summary ---
Author Organization [facility] Address [address] [place] [address] Care Team Providers Care Driver Name Role Phone Lotus Peraza MD Primary Care Provider Unavaila ble Reason for Visit * Reason Onset Date Comments radiology 05/03/2017 Xray Encounter Details Date Type Department Care Team Description 05/03/[address] [address] Lotus Peraza MD radiology (Xray) Social History [...] on filedocumented in this encounter Care Teams Driver Relationship Specialty Start Date End Date Lotus Peraza MD PCP - General Internal Medicine 07/28/16 documented as of this encounter
--- OUTSIDE RECORDS SUMMARY | 2025-04-04 12:23 | XMS_ITS | Encounter Summary ---
Author Organization [facility] Address [address] [place] [address] Care Team Providers Care Secondary History Teacher Name Role Phone Lotus Peraza MD Primary Care Provider Unavaila ble Reason for Visit * Reason Comments E-prescribe Rx Request Encounter Details Date Type Department Care Team Description 12/31/2019 Refill Medicine/Pediatrics - [address] [phone] Lotus Peraza MD E-prescribe Rx Request Social History Tobacco Use Types Packs/Day Years Used Date Smoking Tobacco: Former Cigarettes 40 Q uit: 09/01/2008 Smokeless Tobacco: Never Alcohol Use Standard Drinks/Week Comments No 0 (1 standard drink = 0.6 oz pur e alcohol) Sex Assigned at Date Recorded Not on file documented as of this encounter Miscellaneous Notes * Telephone Encounter - Lotus Peraza MD - 12/31/2019 1:15 PM EST She has been instructed to take 5000 IU every other day * Telephone Encounter - Niya Xavier M.A. - 12/31/2019 1:13 PM EST Last OV 10/03/19, next appt 03/27/20 * Telephone Encounter - Valencia Keith - 12/31/2019 1:11 PM EST Patient would like script to be: E-PRESCRIBED/FAXED TO PHARMACY WHEN WAS THE PATIENT'S LAST APPOINTMENT IN ADULT MEDICINE? 10/03/19 WHEN WAS THE LAST TIME THE PATIENT SAW THEIR PCP? Same as above Does patient have an upcoming appointment? Yes 03/27/2020 (THE MEDICATION REQUESTED IS ON THE MED LIST ABOVE) All of the medications requested were on the CURRENT MEDS list Did you check the Pharmacy information above?: YES Patient wants: 30 -day supply Is this a mail order prescription request ? NO If the refill is from a FAXED refill request what is the RX # listed on the fax? N/A Patients current insurance carrier is: Payor: [employer] FFS / Plan: FLOYD EMANUEL $20/$35 / Product Type: HMO [id number] documented in this encounter Plan of Treatment Not on file documented as of this encounter Visit Diagnoses Not on filedocumented in this encounter Care Teams Secondary History Teacher Relationship Specialty Start Date End Date Lotus Peraza MD PCP - General Internal Medicine 07/28/16 documented as of this encounter
--- OUTSIDE RECORDS SUMMARY | 2025-04-04 12:23 | XMS_ITS | Encounter Summary ---
Author Organization [facility] Address [address] [place] [address] Care Team Providers Care Sheet Turner Name Role Phone Lotus Peraza MD Primary Care Provider Reji dean Encounter Details Date Type Department Care Team Description 09/08/2018 Pt. Non Urgent Medical Question Medicine/Pediatrics - [address] [phone] Lotus Peraza MD Social History Tobacco Use Types Packs/Day Years Used Date Smoking Tobacco: Former Cigarettes 40 Q uit: 09/01/2008 Smokeless Tobacco: Never Alcohol Use Standard Drinks/Week Comments No 0 (1 standard drink = 0.6 oz pur e alcohol) Sex Assigned at Date Recorded Not on file documented as of this encounter Progress Notes * Jenniffer Banks RN - 09/10/2018 9:19 AM EDTFrom: Danette Juárez To: Lotus Peraza MD Sent: 09/08/2018 9:36 AM EDT Subject: Question regarding CHOLESTEROL I have a question about CHOLESTEROL resulted on 09/06/18, 7:09 PM. Yep it looks like cholesterol medicine is in order again, sure send it to [facility] in [place] please. Should I start with the vitamin D also? Thank you documented in this encounter Plan of Treatment Not on file documented as of this encounter Visit Diagnoses Not on filedocumented in this encounter Care Teams Sheet Turner Relationship Specialty Start Date End Date Lotus Peraza MD PCP - General Internal Medicine 07/28/16 documented as of this encounter
--- OUTSIDE RECORDS SUMMARY | 2025-04-04 12:23 | XMS_ITS | Encounter Summary ---
Author Organization [facility] Address [address] [place] [address] Care Team Providers Care Motor Equipment Sergeant Name Role Phone Lotus Peraza MD Primary Care Provider Reji dean Encounter Details Date Type Department Care Team Description 11/25/2020 Orders Only Medicine/Pediatrics - [address] [phone] Lotus Peraza MD Exposure to COVID-19 virus [...] of this encounter Results * COVID-19 TESTING (11/25/2020 2:28 PM EST) SARS-COV-2 RNA, QUALRT-PCR NOT DETECTED NOT DETECT 11/26/2020 8:05 AM EST [facility] Comment: Disclaimer: The manner in which this information is used to guide patient care is the responsibility of the healthcare provider. Testing was performed using the WeGame M2000 SARS-CoV-2 test. 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
--- OUTSIDE RECORDS SUMMARY | 2025-04-04 12:23 | XMS_ITS | Clinical Summary ---
Author Organization [address] [place] [address] [place] [phone] Phone Care Team Providers Care Supervisor Cereal Name Role Phone Lotus Freed MD Primary Care Provider [phone] Allergies Active Allergy Reactions Criticality Noted Date [...] infection 09/01/2016 Hypercholesteremia 09/01/2016 Urinary incontinence 09/01/2016 Immunizations Name Administration Dates Next Due Influenza trivalent, with pr eservative (Fluzone; Afluria) 6mo and older 07/29/2019 Surgical History Surgery Date Site/Laterality Comments OTHER SURGICAL HISTORY PROCEDURE: [place] ANTERIOR COLPORRAPHY RPR CYSTOCELE W/CYSTO; COMMENT: x 2 OOPHORECTOMY PROCEDURE: HISTORICAL OOPHORECTOMY OTHER SURGICAL HISTORY PROCEDURE: [place] REPAIR RECTOCELE SEPARATE PROCEDURE OTHER SURGICAL HISTORY [...] Vaccine ( season) 2024 10/28/2021, 02/26/2021, 02/04/2021 Cholesterol Screening [...] Procedure Name Priority Date/Time Associated Diagnosis Comments LIPID PANEL Routine 10/03/2019 SCR MAMMO BI INCL CAD Routine 05/13/2019 9:08 AM EDT Encounter for screening mammogram for malignant neoplasm of breast HEPATITIS C SCREENING Routine 11/03/2016 COLONOSCOPY Routine 04/20/2012 from Last 3 Months or Most Recently Relevant to Health Maintenance Results * (ABNORMAL) Lipid panel (10/03/2019) LDL/HDL Ratio [...] % Breast cancer risk category Low (<15%) us Rita Carlson MD IMG XR PROCEDURES Final Result * Hepatitis C Screening (11/03/2016) Hepatitis C Screening abstracted Historical Provider HEALTH MAINTENANCE Final Result * Colonoscopy (04/20/2012) Colonoscopy no interpretation , abstracted Comment:per pt Anatomical Region Laterality Modality Other Historical Provider HEALTH MAINTENANCE Final Result from Last 3 Months or Most Recently Relevant to Health Maintenance Insurance MEDICARE [facility] Care Teams Supervisor Cereal Relationship Specialty Start Date End Date Lotus Freed MD PCP - General Endocrinology 12/24/24
--- OUTSIDE RECORDS SUMMARY | 2025-04-04 12:23 | XMS_ITS | Encounter Summary ---
Author Organization [facility] Address [address] [place] [address] Care Team Providers Care Tipple Worker Name Role Phone Lotus Peraza MD Primary Care Provider Reji dean Encounter Details Date Type Department Care Team Description 09/02/2020 Orders Only Medicine/Pediatrics - [address] [phone] Lotus Peraza MD Exposure to COVID-19 virus [...] DETECTED NOT DETECT 09/03/2020 10:40 AM EDT [facility] Comment: Disclaimer: The manner in which this information is used to guide patient care is the responsibility of the healthcare provider. Testing was performed using the Quantum Voyage M2000 SARS-CoV-2 test. 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
--- OUTSIDE RECORDS SUMMARY | 2025-04-04 12:23 | XMS_ITS | Encounter Summary ---
Author Organization [facility] Address [address] [place] [address] Care Team Providers Care Protection Mgr Name Role Phone Lotus Peraza MD Primary Care Provider Reji dean Encounter Details Date Type Department Care Team Description 03/22/2019 PNO Controlled Substance Contract Medical Records [address] [place] [address] Abstract, Provider Social History Tobacco Use Types [...] on filedocumented in this encounter Care Teams Protection Mgr Relationship Specialty Start Date End Date Lotus Peraza MD PCP - General Internal Medicine 07/28/16 documented as of this encounter
--- OUTSIDE RECORDS SUMMARY | 2025-04-04 12:23 | XMS_ITS | Encounter Summary ---
Author Organization [facility] Address [address] [place] [address] Care Team Providers Care Order Picker Name Role Phone Lotus Peraza MD Primary Care Provider Reji dean Encounter Details Date Type Department Care Team Description 01/03/2017 Transfer Records Medical Records [address] [place] [address] Abstract, Provider Social History Tobacco Use Types [...] on filedocumented in this encounter Care Teams Order Picker Relationship Specialty Start Date End Date Ltous Peraza MD PCP - General Internal Medicine 07/28/16 documented as of this encounter
--- OUTSIDE RECORDS SUMMARY | 2025-04-04 12:23 | XMS_ITS | Encounter Summary ---
Author Organization [facility] Address [address] [place] [address] Care Team Providers Care Mold Engraver Name Role Phone Lotus Peraza MD Primary Care Provider Unavaila ble Reason for Referral * EXTERNAL (Urgent) - Authorized/Booked Specialty Diagnoses / Procedures Referred By Contact Referred To Contact Ophthalmology / OPTOMETRY Procedures REFERRAL TO EYE SERVICES Lotus Peraza MD [address] [place] [id number] Abner Dougherty MD Referral ID Status Reason Start Date Expiration Date V isits Requested Visits Authorized SEE NOTE Authorized/B ooked 07/18/2018 10/18/2018 1 1 Reason for Visit * Reason Onset Date Comments Community Service Officer Feedback 07/18/2018 Encounter Details Date Type Department Care Team Description 07/18/2018 Telephone Medicine/Pediatrics - [address] [phone] Lotus Peraza MD Community Service Officer Feedback Social History Tobacco Use Types Packs/Day Years Used Date Smoking Tobacco: Former Cigarettes 40 Q uit: 09/01/2008 Alcohol Use Standard Drinks/Week Comments No 0 (1 standard drink = 0.6 oz pur e alcohol) Sex Assigned at Date Recorded Not on file documented as of this encounter Miscellaneous Notes * Telephone Encounter - Katlyn Paul - 07/18/2018 9:27 AM EDT Please review this patients new referral request. The referral has been pended. Please complete thefollowing: If approved> sign order If denied>please give instructions and route to your practice nursing pool. Practice nurse should inform referrals and the patient if denied. * Telephone Encounter - Valencia Parker - 07/18/2018 9:15 AM EDT What insurance does the patient have today? Payor: DARIO/HMO FFS / Plan: [place] $15 / Product Type: HMO [id number] Effective 08/20/09: BC will not retro referral requests over 90 days. If request is for this please instruct patient to call the 800# on their insurance card to appeal. Do not submit a request. Referrals cannot be processed if the insurance is not accurate. If the insurance listed above in red is NO BILLING INFORMATION FOUND FOR THIS ENCOUTNER The patients correct insurance must be obtained and registered in [facility] or their referral can not be processed. Is this a retro request? NO. If yes for what date of service do you need the retro referral? N/A Who is calling to request this referral? patient If the caller is not the patient, what is their name? N/A Ask the patient WHO referred them to this specialty: self referred FIRST and LAST NAME of SPECIALIST PATIENT is seeing: abner dougherty md What specialty is this? optomology DIAGNOSIS Patient is being seen for (Not a body part or a procedure): trouble seeing out of right eye Have you seen this SPECIALIST for this PROBLEM/DX before?NO If YES, when: Have you checked REVIEW or the APPT DESK to see if this referral has already been done or has visits left? YES Is this visit:Initial Visit Address of Specialist:[address] [place] [address] Phone # of Specialist:[phone] Fax #: (if applicable):[phone] Does patient have an appointment scheduled?: YES Date of appointment- (including a retro-request): 07/19/18 Is this appointment related to: Not MVA, WC or Surgery related Requesting 4 visits documented in this encounter Plan of Treatment Not on file documented as of this encounter Visit Diagnoses Not on filedocumented in this encounter Care Teams Mold Engraver Relationship Specialty Start Date End Date Lotus Peraza MD PCP - General Internal Medicine 07/28/16 documented as of this encounter
--- OUTSIDE RECORDS SUMMARY | 2025-04-04 12:23 | XMS_ITS | Encounter Summary ---
Author Organization [facility] Address [address] [place] [address] Care Team Providers Care Electronic Scanner Operator Name Role Phone Effie Yarbrough Primary Care Provider Lotus Mccarthy MD Primary Care Provider Reji dean Encounter Details Date Type Department Care Team Description 06/16/2016 Transfer Records Medical Records [address] [place] [address] Abstract, Provider Social History Tobacco Use Types Packs/Day Years Used Date Smoking Tobacco: Never Assessed Sex Assigned at Date Recorded Not on file documented as of this encounter Plan of Treatment Not on file documented as of this encounter Visit Diagnoses Not on filedocumented in this encounter Care Teams Electronic Scanner Operator Relationship Specialty Start Date End Date Effie Yarbrough PCP - General Family Practice 05/02/16 07/27/16 Lotus Peraza MD PCP - General Internal Medicine 07/28/16 documented as of this encounter
--- OUTSIDE RECORDS SUMMARY | 2025-04-04 12:23 | XMS_ITS | Encounter Summary ---
Author Organization [facility] Address [address] [place] [address] Care Team Providers Care Stripper Apprentice Name Role Phone Louts Peraza MD Primary Care Provider Reji dean Encounter Details Date Type Department Care Team Description 09/12/2016 Hereditary Cancer Qu iz Results Medical Records [address] [place] [address] Abstract, Provider Social History Tobacco Use Types [...] on filedocumented in this encounter Care Teams Stripper Apprentice Relationship Specialty Start Date End Date Lotus Peraza MD PCP - General Internal Medicine 07/28/16 documented as of this encounter
--- OUTSIDE RECORDS SUMMARY | 2025-04-04 12:23 | XMS_ITS | Encounter Summary ---
Author Organization [facility] Address [address] [place] [address] Care Team Providers Care Media Marketing Coordinator Name Role Phone Lotus Peraza MD Primary Care Provider Emmaa ble Reason for Visit * Reason Onset Date Comments REFERRAL 03/17/2017 Encounter Details Date Type Department Care Team Description 03/17/2017 Telephone Physiatry - [place] [address] [place] [address] Yuriy Faustin PA-C REFERRAL Social History Tobacco [...] Payor: DARIO/O FFS / Plan: HMO $15 NAYLOR [id number] / Product Type: HMO [id number] documented in this encounter Plan of Treatment Not on file documented as of this encounter Visit Diagnoses Not on filedocumented in this encounter Care Teams Media Marketing Coordinator Relationship Specialty Start Date End Date Lotus Peraza MD PCP - General Internal Medicine 07/28/16 documented as of this encounter
--- OUTSIDE RECORDS SUMMARY | 2025-04-04 12:23 | XMS_ITS | Encounter Summary ---
Author Organization [facility] Address [address] [place] [address] Care Team Providers Care Hoe Worker Name Role Phone Lotus Peraza MD Primary Care Provider Reji dean Encounter Details Date Type Department Care Team Description 03/16/2020 Orders Only Medicine/Pediatrics - [address] [phone] Lotus Peraza MD Social History Tobacco Use [...] on filedocumented in this encounter Care Teams Hoe Worker Relationship Specialty Start Date End Date Lotus Peraza MD PCP - General Internal Medicine 07/28/16 documented as of this encounter
--- OUTSIDE RECORDS SUMMARY | 2025-04-04 12:23 | XMS_ITS | Encounter Summary ---
Author Organization [facility] Address [address] [place] [address] Care Team Providers Care Cutter Grind Tool Technician Name Role Phone Lotus Peraza MD Primary Care Provider Reji dean Encounter Details Date Type Department Care Team Description 05/19/2017 Crepe Sole Wire Brusher Report Medical Records [address] [place] [address] Cirilo Rowe PA-C Social History Tobacco Use [...] on filedocumented in this encounter Care Teams Cutter Grind Tool Technician Relationship Specialty Start Date End Date Lotus Peraza MD PCP - General Internal Medicine 07/28/16 documented as of this encounter
--- OUTSIDE RECORDS SUMMARY | 2025-04-04 12:23 | XMS_ITS | Encounter Summary ---
Author Organization [facility] Address [address] [place] [address] Care Team Providers Care Senior Business Development Manager Name Role Phone Lotus Peraza MD Primary Care Provider Reji dean Encounter Details Date Type Department Care Team Description 04/20/2017 Test And Research Reactor Operator Report Medical Records [address] [place] [address] Abstract, Provider Social History Tobacco Use Types [...] on filedocumented in this encounter Care Teams Senior Business Development Manager Relationship Specialty Start Date End Date Lotus Peraza MD PCP - General Internal Medicine 07/28/16 documented as of this encounter
--- OUTSIDE RECORDS SUMMARY | 2025-04-04 12:23 | XMS_ITS | Encounter Summary ---
Author Organization [facility] Address [address] [place] [address] Care Team Providers Care Welder Fitter Name Role Phone Lotus Peraza MD Primary Care Provider Reji dean Encounter Details Date Type Department Care Team Description 07/16/2020 Orders Only Medicine/Pediatrics - [address] [phone] Lotus Peraza MD Nausea (Primary Dx) Social [...] Lotus Peraza MD LAB Performing Organization Address City/State/[facility] Co de Phone Number [employer] documented in this encounter Visit Diagnoses Diagnosis Nausea- Primary Nausea alone documented in this encounter Care Teams Welder Fitter Relationship Specialty Start Date End Date Lotus Peraza MD PCP - General Internal Medicine 07/28/16 documented as of this encounter
--- OUTSIDE RECORDS SUMMARY | 2025-04-04 12:23 | XMS_ITS | Encounter Summary ---
Author Organization [facility] Address [address] [place] [address] Care Team Providers Care Claim Analyst Name Role Phone Lotus Peraza MD Primary Care Provider Unavaila ble Reason for Visit * Reason Onset Date Comments Seam Rubbing Machine Operator Feedback 09/04/2017 Encounter Details Date Type Department Care Team Description 09/04/2017 Telephone Medicine/Pediatrics - [address] [phone] Lotus Peraza MD Seam Rubbing Machine Operator Feedback Social History Tobacco Use Types Packs/Day [...] Spoke with patient : she sees - [facility] , [place]. ADDRESS AND LOCATION BELOW ARE [facility]. Thank you. * Telephone Encounter - Iman [...] insurance must be obtained and registered in [facility] or their referral can not be processed. ? Is this a retro request? NO ? If yes for what date of service do you need the retro referral? N/A ? Who is calling to request this referral? Physical Theraphy ? If the caller is not the patient, what is their name? N/A ? Ask the patient WHO referred them to this specialty: Roxie ? FIRST and LAST NAME of SPECIALIST [...] visit for therapy. ? Address of Specialist: [address] [place] [address] [place] [address] ? Phone # of Specialist:[phone] ? Fax #: (if applicable): [phone] ? Does patient have an appointment scheduled?: ? Date of appointment- (including a retro-request): PT STATES SHE NEEDS MORE REFERALLS TO BE SEEN. ? Is this appointment related to: Not MVA, WC or Surgery related ?? documented in this encounter Plan of Treatment Not on file documented as of this encounter Visit Diagnoses Not on filedocumented in this encounter Care Teams Claim Analyst Relationship Specialty Start Date End Date Lotus Peraza MD PCP - General Internal Medicine 07/28/16 documented as of this encounter
[2025-04-04 13:54] LABS: Alanine Aminotransferase 30 U/L (0-31); Albumin Level 4.6 g/dL (3.5-5.0); Alkaline Phosphatase 69 U/L (39-117); Aspartate Amino Transferase 26 U/L (5-31); Bilirubin Direct 0.2 mg/dL (0.0-0.5); Bilirubin Total 0.7 mg/dL (0.0-1.0); Cholesterol 184 mg/dL (<200); HDL Cholesterol 82 mg/dL (>40); LDL Cholesterol Calculated 86 mg/dL (<100); Total Protein 7.1 g/dL (6.5-8.0); Triglycerides 80 mg/dL (<150)
[2025-04-06 10:29] LABS: LDL Cholesterol Direct 84 mg/dL (<100)
== END 2025-04-04 12:21 | disposition home or self-care (01) ==
LOC: HO.LAB 12:20
PROVIDERS: PCP Internal Medicine; Visit Provider Internal Medicine
DX: I25.10 Atherosclerotic heart disease of native coronary artery without angina pectoris (principal); E78.2 Mixed hyperlipidemia; E78.5 Hyperlipidemia, unspecified
CPT/HCPCS: 36415; 80061; 80076; 83721

== ENCOUNTER 2025-04-04 12:34 | Day surgery (SDC) | payer BC, SELFPAY ==
[2025-04-04 13:54] VITALS: BP 174/89; PULSE 59; RESP 19; O2SAT 98; BMI 30.4
--- NOTE | 2025-04-04 14:51 | P.BOP_ITS ---
Brief Operative Note Date of Service: 04/04/25 Pre-op diagnosis: Possible atrial fibrillation Post-op diagnosis: same Procedure: Placement of implantable loop recorder. Implants: After obtaining informed consent patient was brought to the minor surgery room. Patient was laid supine on the operating table. Patient is precordial area was then prepped and draped in a sterile fashion. Patient was then administered 2% lidocaine with epinephrine intradermally and subcutaneously in the 4th intercostal space. A KidzVuztronic implantable loop recorder, LINQ 2 with serial number [id number] was then placed in the subcutaneous space using modified Seldinger technique. Measured R-wave at 0.35-0.54 mV. The wound was then closed with Steri-Strips. Pressure dressing was then applied. Surgeon: Linden Kuhn MD Anesthesia: local Was an Prizer Hand used for this Procedure?: No Estimated blood loss (mL): 3 Pathology: none sent Condition: stable Disposition: same day
== END 2025-04-04 12:35 | disposition home or self-care (01) ==
LOC: HO.SSS 04-07 11:34
PROVIDERS: PCP Internal Medicine; Visit Provider Internal Medicine Cardiovascular Disease
PROC: (CPT 33285; principal; 2025-04-04 14:20)
DX: I48.0 Paroxysmal atrial fibrillation (principal)
CPT/HCPCS: 33285; C1764; J2004

== ENCOUNTER → 2025-04-04 12:34 | Outpatient (BNV) | payer BC, SELFPAY | PROVIDERS: PCP Internal Medicine; Visit Provider Internal Medicine Cardiovascular Disease | DX: I48.91 Unspecified atrial fibrillation (principal) | CPT/HCPCS: 33285 ==

== ENCOUNTER 2025-04-15 08:02 | Outpatient (AMB) | payer BC, SELFPAY ==
--- OUTSIDE RECORDS SUMMARY | 2025-04-15 08:05 | XMS_ITS | Clinical Summary ---
Author Organization [address] [place] [address] [place] [phone] Phone Care Team Providers Care Biology Faculty Member Name Role Phone Lotus Freed MD Primary Care Provider [phone] Allergies Active Allergy Reactions Criticality Noted Date [...] Date Site/Laterality Comments OTHER SURGICAL HISTORY PROCEDURE: ND ANTERIOR COLPORRAPHY RPR CYSTOCELE W/CYSTO; COMMENT: x 2 OOPHORECTOMY PROCEDURE: HISTORICAL OOPHORECTOMY OTHER SURGICAL HISTORY PROCEDURE: ND REPAIR RECTOCELE SEPARATE PROCEDURE OTHER SURGICAL HISTORY [...] Recently Relevant to Health Maintenance Insurance MEDICARE [facility] Care Teams Biology Faculty Member Relationship Specialty Start Date End Date Lotus Freed MD PCP - General Endocrinology 12/24/24
[2025-04-15 08:25] VITALS: BP 140/90; PULSE 57; BMI 31.5
--- NOTE | 2025-04-15 08:25 | A.OFFVIS_ITS ---
Vital Signs 04/15/25 08:25 Height 5 ft 7 in Weight 201 lb 0.985 oz BMI 31.5 BP 140/90 H Blood Pressure Location Lt brachial Position Sitting Pulse 57 Pulse Source Pulse Oximeter Intake Visit Reasons: ILR wound ck Advertising Agency Manager Required: No Allergies codeine Allergy (Severe, Verified 04/15/25 08:27) Stomach Upset Medication List - Last Reconciled 04/15/25 by Jannie Elena, JERSEY-C aspirin (Adult Aspirin Regimen) 81 mg PO DAILY atorvastatin 80 mg PO DAILY cholecalciferol (vitamin D3) PO diazepam (Valium) 10 mg (2 x 5 mg) PO BEDTIME PRN 30 days glucosamine-chondroitin 1 tab PO DAILY levocetirizine 5 mg PO DAILY metoprolol succinate ER (Toprol XL) 50 mg PO DAILY tramadol 50 mg PO Q8H PRN 28 days valacyclovir (Valtrex) 1,000 mg PO DAILY HPI HPI ILR wound ck: Details: Danette is a 69-year-old female with past medical history of hypertension, hyperlipidemia, CAD, ascending aorta dilation who reported heart palpitations and left arm numbness. She then underwent implantable loop recorder placement to evaluate for the presence of atrial fibrillation and now presents for follow- up. Today she reports she has been doing well since her last visit. Her ILR site is feeling good. No recurrent issues with heart palpitations or left arm numbness since last visit. No chest discomfort at rest or with activity. No shortness of breath, PND, orthopnea or edema. No lightheadedness, presyncope, syncope, falls. Taking meds as directed. Tells me her blood pressure at home ranges between 100- 140 systolic. [facility] Medical History Cataract Heart palpitations Asthma Back pain HSV (herpes simplex virus) infection Anxiety Surgical History Hx of left cataract extraction (12/16/24) Family History Father Hx of CABG Social History Housing: Condominium Are you a primary career development engineer to a significant other at home: No Do you presently have visiting nurse or other home services: No Alcohol intake: current Alcohol intake frequency: a few times a month Patient Tobacco Use Status: Former Tobacco user Tobacco use type: Cigarette Cigarette Packs Per Day: 2 Years Smoked: 15 e-Cigarette/Vaping Use: Never Used Second Hand Smoke Exposure: No service: No Current occupational status: employed and retired 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 Current occupational exposures/hazards: No Cognitive needs: No Hearing needs: No Vision needs: Yes Review of Systems Const All systems reviewed & are unremarkable except as noted in HPI and below ENT Denies dizziness Card Denies chest pain, Denies chest pain at rest, Denies chest pain with activity, Denies rapid heart rate, Denies pedal edema, Denies edema, Denies leg edema, Denies lightheadedness, Denies palpitations, Denies dyspnea, Denies dyspnea on exertion and Denies orthopnea Resp Denies cough, Denies dyspnea and Denies dyspnea on exertion GI Denies hematochezia and Denies change in stool character Musc Denies abnormal gait, Denies limited range of motion, Denies muscle cramps, Denies muscle weakness, Denies numbness, Denies radiating pain into limb, Denies stiffness and Denies tingling Neuro Denies abnormal gait, Denies dizziness, Denies numbness and Denies tingling Endo Denies palpitations Physical Exam Vital Signs: Last Vital Signs Pulse 57 04/15/25 08:25 BP 140/90 H 04/15/25 08:25 BMI result Body Mass Index 31.5 Const General: cooperative, healthy appearing, comfortable and no acute distress Orientation/consciousness: patient oriented x3 Neck Neck: Yes normal visual inspection Chest Other: Dressing and steri strips removed from ILR site, incision well healed with no redness, swelling or drainage. Resp Effort & Inspection: normal respiratory effort Auscultation: clear to auscultation bilaterally, no rales, no rhonchi and no wheezes Cardio Rate: regular rate Rhythm: regular rhythm Heart sounds: S1 normal heart sound present, S2 normal heart sound present, no gallops, no murmurs and no rubs Neuro General: patient oriented x3 Extrem General: Yes normal to inspection, No no pedal edema and No calf tenderness Psych Appearance: grossly normal Mental Status: mental status grossly normal Speech and movement: Normal speech and movement present Assessment & Plan Assessment & Plan (1) Palpitations: Code(s): R00.2 - Palpitations Category: Medical Plan: Prior reports of heart palpitations and an episode of left arm numbness. Holter monitor done 02/27/2025 for 8 days shows sinus rhythm with average heart rate 88 beats per minute, frequent sinus tachycardia, 28.5% of the time heart rate greater than 100, rare PACs. Symptoms correlated with sinus tachycardia. Echocardiogram done 02/27/2025 showing EF 55-60%, grade 1 diastolic dysfunction, mild AR, mildly dilated ascending aorta 4.3 cm, basal inferior and basal inferior septal segments hypokinetic. She then underwent ILR placement 2024. No arrhythmias identified as of yet. Continue to monitor remotely. Cardiology follow-up 6 months, sooner if needed. (2) Visit for wound check: Code(s): Z51.89 - Encounter for other specified aftercare Category: Medical Plan: ILR wound site left chest healing well without issues. (3) Implantable loop recorder present: Comment: Medtronic ILR 04/04/2025 Code(s): Z95.818 - Presence of other cardiac implants and grafts Category: Medical (4) Atherosclerotic cardiovascular disease: Code(s): I25.10 - Atherosclerotic heart disease of [place] coronary artery without angina pectoris Category: Medical Plan: Echocardiogram showed presence of regional wall motion abnormality. She then had CTA of the coronary arteries 03/28/2025 showing less than 50% stenosis of the mid LAD and mid circumflex, mild stenosis of the proximal 1st OM, normal RCA, aortic root 4.1 cm, ascending aorta 4.2 cm. No reports of anginal symptoms. Continue aspirin indefinitely. Continue high-dose atorvastatin with ideal LDL goal less than 70. Continue metoprolol. Signs and symptoms of angina reviewed. (5) Essential hypertension: Code(s): I10 - Essential (primary) hypertension Category: Medical Plan: Blood pressure goal less than 130/80. Mildly elevated today improved on recheck down to 126/84. Reviewed low-salt diet. No med changes made. Plan Time spent on chart review, documentation, interviewed assessment Coding Level of Care Code Est Pt Level 4 (14506) Complex EM visit Add On G2211 Diagnoses Palpitations R00.2 Visit for wound check Z51.89 Implantable loop recorder present Z95.818 Atherosclerotic cardiovascular disease I25.10 Essential hypertension I10 Time Spent (min) 28
== END 2025-04-15 08:54 | disposition home or self-care (01) ==
LOC: HO.HCS 08:03
PROVIDERS: PCP Internal Medicine; Visit Provider Nurse Practitioner Family
DX: R00.2 Palpitations (principal); Z51.89 Encounter for other specified aftercare; Z95.818 Presence of other cardiac implants and grafts; I25.10 Atherosclerotic heart disease of native coronary artery without angina pectoris; I10 Essential (primary) hypertension
CPT/HCPCS: 99214

== ENCOUNTER → 2025-04-15 08:02 | Outpatient (BNVA) | payer BC, SELFPAY | PROVIDERS: PCP Internal Medicine; Visit Provider Nurse Practitioner Family ==

== ENCOUNTER → 2025-05-04 23:59 | Outpatient (BNV) | payer BC, SELFPAY ==
--- NOTE | 2025-05-11 09:45 | MHC.OFFVIS ---
Intake Visit Reasons: Remote ILR check- Medtronic Allergies codeine Allergy (Severe, Verified 04/15/25 08:27) Stomach Upset PFSH Medical History Cataract Heart palpitations Asthma Back pain HSV (herpes simplex virus) infection Anxiety Surgical History Hx of left cataract extraction (12/16/24) Family History Father Hx of CABG Social History Housing: Condominium Are you a primary palliative care coordinator to a significant other at home: No Do you presently have visiting nurse or other home services: No Alcohol intake: current Alcohol intake frequency: a few times a month Patient Tobacco Use Status: Former Tobacco user Tobacco use type: Cigarette Cigarette Packs Per Day: 2 Years Smoked: 15 e-Cigarette/Vaping Use: Never Used Second Hand Smoke Exposure: No service: No Current occupational status: employed and retired 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 [id number] Cardiac Interrogation, subcut cardiac rhythm monitor Procedure code (CPT) selection complete Assessment & Plan Assessment & Plan (1) Implantable loop recorder present: Comment: Medtronic ILR 04/04/2025 Code(s): Z95.818 - Presence of other cardiac implants and grafts Category: Medical (2) Palpitations: Code(s): R00.2 - Palpitations Category: Medical Plan x Coding Level of Care Code Procedure Only Diagnoses Implantable loop recorder present Z95.818 Palpitations R00.2 CPT Codes Cardiac Device Check - Cardiac Device 16: [id number] Cardiac Interrogation, subcut cardiac rhythm monitor ([id number])
== END ==
PROVIDERS: PCP Internal Medicine; Visit Provider Internal Medicine
DX: R00.2 Palpitations (principal); Z95.818 Presence of other cardiac implants and grafts
CPT/HCPCS: 93298

== ENCOUNTER → 2025-06-04 23:59 | Outpatient (BNV) | payer BC, SELFPAY ==
--- NOTE | 2025-06-12 12:49 | A.OFFVIS_ITS ---
Intake Visit Reasons: Remote ILR check- Medtronic Allergies codeine Allergy (Severe, Verified 04/15/25 08:27) Stomach Upset PFSH Medical History Cataract Heart palpitations Asthma Back pain HSV (herpes simplex virus) infection Anxiety Surgical History Hx of left cataract extraction (12/16/24) Family History Father Hx of CABG Social History Housing: Condominium Are you a primary child care development specialist to a significant other at home: No Do you presently have visiting nurse or other home services: No Alcohol intake: current Alcohol intake frequency: a few times a month Patient Tobacco Use Status: Former Tobacco user Tobacco use type: Cigarette Cigarette Packs Per Day: 2 Years Smoked: 15 e-Cigarette/Vaping Use: Never Used Second Hand Smoke Exposure: No service: No Current occupational status: employed and retired 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 [id number] Cardiac Interrogation, subcut cardiac rhythm monitor Procedure code (CPT) selection complete Assessment & Plan Assessment & Plan (1) Implantable loop recorder present: Comment: Medtronic ILR 04/04/2025 Code(s): Z95.818 - Presence of other cardiac implants and grafts Category: Medical (2) PAF (paroxysmal atrial fibrillation): Code(s): I48.0 - Paroxysmal atrial fibrillation Category: Medical Plan x Coding Level of Care Code Procedure Only Diagnoses Implantable loop recorder present Z95.818 PAF (paroxysmal atrial fibrillation) I48.0 CPT Codes Cardiac Device Check - Cardiac Device 16: [id number] Cardiac Interrogation, subcut cardiac rhythm monitor ([id number])
== END ==
PROVIDERS: PCP Internal Medicine; Visit Provider Internal Medicine
DX: I48.0 Paroxysmal atrial fibrillation (principal); Z95.818 Presence of other cardiac implants and grafts
CPT/HCPCS: 93298

== ENCOUNTER → 2025-07-05 23:59 | Outpatient (BNV) | payer BC, SELFPAY ==
--- NOTE | 2025-07-20 13:33 | MHC.OFFVIS ---
Intake Visit Reasons: Remote ILR check- [employer] Allergies codeine Allergy (Severe, Verified 04/15/25 08:27) Stomach Upset PFSH Medical History Cataract Heart palpitations Asthma Back pain HSV (herpes simplex virus) infection Anxiety Surgical History Hx of left cataract extraction (12/16/24) Family History Father Hx of CABG Social History Housing: Condominium Are you a primary career placement specialist to a significant other at home: No Do you presently have visiting nurse or other home services: No Alcohol intake: current Alcohol intake frequency: a few times a month Patient Tobacco Use Status: Former Tobacco user Tobacco use type: Cigarette Cigarette Packs Per Day: 2 Years Smoked: 15 e-Cigarette/Vaping Use: Never Used Second Hand Smoke Exposure: No service: No Current occupational status: employed and retired 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 [id number] Cardiac Interrogation, subcut cardiac rhythm monitor Procedure code (CPT) selection complete Assessment & Plan Assessment & Plan (1) Implantable loop recorder present: Comment: [employer] ILR 04/04/2025 Code(s): Z95.818 - Presence of other cardiac implants and grafts Category: Medical (2) PAF (paroxysmal atrial fibrillation): Code(s): I48.0 - Paroxysmal atrial fibrillation Category: Medical Plan x Coding Level of Care Code Procedure Only Diagnoses Implantable loop recorder present Z95.818 PAF (paroxysmal atrial fibrillation) I48.0 CPT Codes Cardiac Device Check - Cardiac Device 16: [id number] Cardiac Interrogation, subcut cardiac rhythm monitor ([id number])
== END ==
PROVIDERS: PCP Internal Medicine; Visit Provider Internal Medicine
DX: I48.0 Paroxysmal atrial fibrillation (principal); Z95.818 Presence of other cardiac implants and grafts
CPT/HCPCS: 93298

== ENCOUNTER → 2025-08-05 23:59 | Outpatient (BNV) | payer BC, SELFPAY ==
--- NOTE | 2025-08-10 14:20 | MHC.OFFVIS ---
Intake Visit Reasons: Remote ILR ([employer]) Allergies codeine Allergy (Severe, Verified 04/15/25 08:27) Stomach Upset PFSH Medical History Cataract Heart palpitations Asthma Back pain HSV (herpes simplex virus) infection Anxiety Surgical History Hx of left cataract extraction (12/16/24) Family History Father Hx of CABG Social History Housing: Condominium Are you a primary resident care aid to a significant other at home: No Do you presently have visiting nurse or other home services: No Alcohol intake: current Alcohol intake frequency: a few times a month Patient Tobacco Use Status: Former Tobacco user Tobacco use type: Cigarette Cigarette Packs Per Day: 2 Years Smoked: 15 e-Cigarette/Vaping Use: Never Used Second Hand Smoke Exposure: No service: No Current occupational status: employed and retired 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 [id number] Cardiac Interrogation, subcut cardiac rhythm monitor Procedure code (CPT) selection complete Assessment & Plan Assessment & Plan (1) Implantable loop recorder present: Comment: [employer] ILR 04/04/2025 Code(s): Z95.818 - Presence of other cardiac implants and grafts Category: Medical (2) PAF (paroxysmal atrial fibrillation): Code(s): I48.0 - Paroxysmal atrial fibrillation Category: Medical Plan x Coding Level of Care Code Procedure Only Diagnoses Implantable loop recorder present Z95.818 PAF (paroxysmal atrial fibrillation) I48.0 CPT Codes Cardiac Device Check - Cardiac Device 16: [id number] Cardiac Interrogation, subcut cardiac rhythm monitor ([id number])
== END ==
PROVIDERS: PCP Internal Medicine; Visit Provider Internal Medicine
DX: I48.0 Paroxysmal atrial fibrillation (principal); Z95.818 Presence of other cardiac implants and grafts
CPT/HCPCS: 93298

== ENCOUNTER → 2025-09-05 23:59 | Outpatient (BNV) | payer BC, SELFPAY ==
--- NOTE | 2025-09-14 09:20 | MHC.OFFVIS ---
Intake Visit Reasons: Remote ILR check- [employer] Allergies codeine Allergy (Severe, Verified 04/15/25 08:27) Stomach Upset PFSH Medical History Cataract Heart palpitations Asthma Back pain HSV (herpes simplex virus) infection Anxiety Surgical History Hx of left cataract extraction (12/16/24) Family History Father Hx of CABG Social History Housing: Condominium Are you a primary home health care social worker to a significant other at home: No Do you presently have visiting nurse or other home services: No Alcohol intake: current Alcohol intake frequency: a few times a month Patient Tobacco Use Status: Former Tobacco user Tobacco use type: Cigarette Cigarette Packs Per Day: 2 Years Smoked: 15 e-Cigarette/Vaping Use: Never Used Second Hand Smoke Exposure: No service: No Current occupational status: employed and retired 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 [id number] Cardiac Interrogation, subcut cardiac rhythm monitor Procedure code (CPT) selection complete Assessment & Plan Assessment & Plan (1) Implantable loop recorder present: Comment: [employer] ILR 04/04/2025 Code(s): Z95.818 - Presence of other cardiac implants and grafts Category: Medical (2) PAF (paroxysmal atrial fibrillation): Code(s): I48.0 - Paroxysmal atrial fibrillation Category: Medical Plan x Coding Level of Care Code Procedure Only Diagnoses Implantable loop recorder present Z95.818 PAF (paroxysmal atrial fibrillation) I48.0 CPT Codes Cardiac Device Check - Cardiac Device 16: [id number] Cardiac Interrogation, subcut cardiac rhythm monitor ([id number])
== END ==
PROVIDERS: PCP Internal Medicine; Visit Provider Internal Medicine
DX: I48.0 Paroxysmal atrial fibrillation (principal); Z95.818 Presence of other cardiac implants and grafts
CPT/HCPCS: 93298

== ENCOUNTER 2025-10-14 14:52 | Outpatient (AMB) | payer BC, SELFPAY ==
[2025-10-14 14:59] VITALS: BP 130/66; PULSE 63; BMI 31.6
--- NOTE | 2025-10-14 14:59 | A.OFFVIS_ITS ---
Vital Signs 10/14/25 14:59 Height 5 ft 7 in Weight 201 lb 15.095 oz BMI 31.6 BP 130/66 Blood Pressure Location Lt brachial Position Sitting Pulse 63 Pulse Source Pulse Oximeter Intake Visit Reasons: 6 mth f/up DC Certified Registered Nurse Practitioner Required: No Accompanied by: Self / Same As Patient Allergies codeine Allergy (Severe, Verified 04/15/25 08:27) Stomach Upset Medication List - Last Reconciled 10/14/25 by Myles Fitzpatrick MD aspirin (Adult Aspirin Regimen) 81 mg PO DAILY atorvastatin 80 mg PO DAILY cholecalciferol (vitamin D3) PO diazepam (Valium) 10 mg (2 x 5 mg) PO BEDTIME PRN 30 days glucosamine-chondroitin 1 tab PO DAILY levocetirizine 5 mg PO DAILY metoprolol succinate ER (Toprol XL) 75 mg (1.5 x 50 mg) PO DAILY 90 days tramadol 50 mg PO Q8H PRN 28 days valacyclovir (Valtrex) 1,000 mg PO DAILY HPI Comments Details: Danette returns for follow-up. To recall, she was originally seen in consultation regarding an abnormal stress test. It seems that she was having episodes of palpitations and left arm numbness. However, she did not have any clear angina. No previous history of coronary disease or myocardial infarction. She underwent an ETT in [place] and following that she underwent a pharmacological stress test at [facility]. Reported to be abnormal and hence she was referred here. Following this, she underwent a coronary CTA showing nonobstructive disease. She also underwent an implantable loop recorder that has shown low burden atrial fibrillation. Overall, she states she is feeling good. No new concerns. [facility] Medical History Cataract Heart palpitations Asthma Back pain HSV (herpes simplex virus) infection Anxiety Surgical History Hx of left cataract extraction (12/16/24) Family History Father Hx of CABG Social History Housing: Condominium Are you a primary career resource specialist to a significant other at home: No Do you presently have visiting nurse or other home services: No Alcohol intake: current Alcohol intake frequency: a few times a month Patient Tobacco Use Status: Former Tobacco user Tobacco use type: Cigarette Cigarette Packs Per Day: 2 Years Smoked: 15 e-Cigarette/Vaping Use: Never Used Second Hand Smoke Exposure: No service: No Current occupational status: employed and retired 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 Current occupational exposures/hazards: No Cognitive needs: No Hearing needs: No Vision needs: Yes Review of Systems Const Denies chills, Denies fatigue, Denies fever(s), Denies frequent falls, Denies weakness, Denies weight gain and Denies weight loss ENT Denies dizziness Card Denies chest pain, Denies leg edema, Denies lightheadedness, Denies palpitations, Denies dyspnea and Denies dyspnea on exertion Resp Denies cough, Denies dyspnea and Denies dyspnea on exertion GI Denies hematochezia Musc Denies abnormal gait, Denies muscle weakness, Denies numbness, Denies radiating pain into limb and Denies tingling Neuro Denies abnormal gait, Denies dizziness, Denies frequent falls, Denies numbness, Denies tingling and Denies weakness Endo Denies fatigue and Denies palpitations Physical Exam Vital Signs: Last Vital Signs Pulse 63 10/14/25 14:59 BP 130/66 10/14/25 14:59 BMI result Body Mass Index 31.6 Const General: comfortable and no acute distress Orientation/consciousness: patient oriented x3 HEENT Other: Unremarkable Head: Yes normal to inspection Neck Neck: Yes normal visual inspection Chest Chest palpation & inspection: normal inspection of the chest Resp Auscultation: clear to auscultation bilaterally Cardio Palpation: normal PMI Heart sounds: S1 normal heart sound present, S2 normal heart sound present, no gallops, no murmurs and no rubs GI Palpation (GI): Soft to palpation Back/Spine/Pelvis Other: unremarkable Skin General skin exam: no rashes or lesions noted Neuro General: patient oriented x3 Extrem General: Yes normal to inspection Psych Mental Status: mental status grossly normal Assessment & Plan Assessment & Plan (1) Atherosclerotic cardiovascular disease: Code(s): I25.10 - Atherosclerotic heart disease of [place] coronary artery without angina pectoris Category: Medical Plan: Cardiac studies reviewed. In the stress test, patient was able to reach 6.3 METS on Brian protocol. Reached only 73% of maximum predicted heart rate. However, no angina at that workload. Had reported shortness of breath and had isolated PACs/PVCs. No EKG evidence of ischemia. In the pharmacological stress perfusion imaging study, small size, very mild intensity reversible defect in the basal anterolateral wall. Stress LVEF 63%. Resting LVEF 58%. LAD calcification on the CAT scan images. In the coronary CTA, < 50% stenosis in the mid LAD, mid circumflex, 1st obtuse marginal. Clinically, she has got no angina. Risk factor modification only. Aspirin. Statins. (2) PAF (paroxysmal atrial fibrillation): Code(s): I48.0 - Paroxysmal atrial fibrillation Category: Medical Plan: Low burden atrial fibrillation lasting only for a couple of hours on the implantable loop recorder. We will continue to monitor. At the time of occurrence, had discussed anticoagulation but patient not willing. As she has not further episodes, we will continue to monitor. If indeed she has more episodes and, should go on anticoagulation. Also remains on beta-blockers. (3) Essential hypertension: Code(s): I10 - Essential (primary) hypertension Category: Medical Plan: Borderline blood pressures. Beta-blockers as above should help. (4) Ascending aorta dilatation: Code(s): I77.810 - Thoracic aortic ectasia Category: Medical Plan: Ascending aortic size 4.3 cm on the echocardiogram. In the CT scan, enlarged aortic root at 4.1 cm. Ascending aorta 4.2 cm. To be monitored. Plan Discussion Notes I discussed the patient's status regarding atrial fibrillation. We reviewed that the implantable monitor has only detected one brief, two-hour episode of AFib several months ago, and there have been no further events.We discussed the patient's preference to hold anticoagulation at this stage. I advised that should the patient experience more frequent or longer episodes, we would need to strongly consider starting a blood thinner like Eliquis to reduce stroke risk, which increases with age. I clarified that anticoagulation is often a lifelong therapy. We will continue the current regimen of metoprolol and aspirin, and the patient will continue to be monitored. A follow-up visit is scheduled for six months. Patient was informed and verbally consented to the use of an ambient scribe for clinic note documentation during this visit. Coding Level of Care Code Est Pt Level 4 (67683) Complex visit Add On G2211 Diagnoses Atherosclerotic cardiovascular disease I25.10 PAF (paroxysmal atrial fibrillation) I48.0 Essential hypertension I10 Ascending aorta dilatation I77.810
--- OUTSIDE RECORDS SUMMARY | 2025-10-14 18:39 | XMS_ITS | Encounter Summary ---
Author Organization [facility] Address [address] [facility] [address] [place] [id number] Phone Care Team Providers Care Retail Business Manager Name Role Phone Lotus Peraza MD Primary Care Provider Encounter Details Date Type Department Care Team (Late st Contact Info) Description 06/06/2022 Ancillary Orders [address] [address] Sakina Roberts MD [address] [place] [address] Orthopedics & Sports Medicine, [place] [address] [email or web address] Social History Tobacco Use Types Packs/Day Years Used Date Smoking Tobacco: Never Assessed Comments Unknown Sex and Gender Information Value Date Recorded Sex Assigned at Not on file Legal Sex Female 9:54 PM EDT Gender Identity Not on file Sexual Orientation Not on file documented as of this encounter Plan of Treatment Not on file documented as of this encounter Visit Diagnoses Not on filedocumented in this encounter Care Teams Retail Business Manager Relationship Specialty Start Date End Date Lotus Peraza MD PCP - General 09/04/17 documented as of this encounter Additional Source Comments The information contained in this document represents components of the legal health record. It is not the complete legal health record.[facility]
--- OUTSIDE RECORDS SUMMARY | 2025-10-14 18:39 | XMS_ITS | Clinical Summary ---
Author Organization [facility] Address [address] [address] Phone Care Team Providers Care Transition Rn Name Role Phone Lotus Peraza MD Primary Care Provider Allergies Active Allergy Reactions Criticality Noted Date Comments Codeine Nausea And Vomiting High 09/01/2016 Latex 09/01/2016 Medications No known medications Family History Medical History Relation Comments Hypertension Mother 2 Stroke Mother 2 Relation Status Comments Mother 1 Alive Mother 2 Social History Tobacco Use Types Packs/Day Years Used Date Smoking Tobacco: Never Assessed Education Answer Date Recorded Are you interested in more education? Not on gilda e 03/17/2023 Are you concerned about learning? Not on file 03/17/2023 No 03/17/2023 No 03/17/2023 Digital Access Answer Date Recorded No 04/15/2023 No 04/15/2023 Reliable internet access at home? Not on file 04/15/2023 Device with a working camera? Not on file Comments Unknown Sex and Gender Information Value Date Recorded Sex Assigned at Not on file Legal Sex Female 9:54 PM EDT Gender Identity Not on file Sexual Orientation Not on file Last Filed Vital Signs Vital Sign Reading Time Taken Comments Blood Pressure 130/82 05/01/2015 10:24 AM EDT Pulse 60 05/01/2015 10:24 AM EDT Temperature - - Respiratory Rate - - Oxygen Saturation - - Inhaled Oxygen Concentration - - Weight 79 kg (174 lb 3.2 oz) 05/01/2015 10:24 AM EDT Height 168.9 cm (5' 6.5 ) 05/01/2015 10:24 AM ED T Body Mass Index 27.7 05/01/2015 10:24 AM EDT Plan of Treatment Health Maintenance Due Date Last Done Comments LIPID PANEL 1956 DEPRESSION SCREENING 1968 SMOKING Hx and SMOKELESS TOBACCO SCREENING 1969 HEPATITIS C SCREENING 1974 MAMMOGRAM 1996 COLOGUARD 2001 COLONOSCOPY 2001 COLORECTAL CANCER SCREENING 2001 FIT TEST 2001 FOBT 2001 SIGMOIDOSCOPY 2001 VIRTUAL COLONOSCOPY 2001 PNEUMOCOCCAL VACCINES (50+ years) (1 of 1 - PCV) 2006 ZOSTER VACCINES (1 of 2) 2006 OSTEOPOROSIS SCREENING INITIAL (ONE-TIME) 2021 INFLUENZA VACCINE (#1) 2025 0, 07/29/2019, 08/28/2018, Additional history exists COVID-19 VACCINE ( season) 2025 10/28/2021, 02/26/2021, 02/04/2021 Adult Td,Tdap Booster 08/03/2025 08/03/2015 RSV VACCINE (1 - 1-dose 75+ series) 2031 HEPATITIS A VACCINES Aged Out No long er eligible based on patient's age to complete this topic HIB VACCINES Aged Out No longer eligi ble based on patient's age to complete this topic MENINGOCOCCAL VACCINES (ACWY) Aged Out No longer eligible based on patient's age to complete this topic MENINGOCOCCAL VACCINES (B) Aged Out N o longer eligible based on patient's age to complete this topic Medical Devices Not on file [facility] [place] [address] [place] [address] [place] [address] [place] [address] [place] [address] [place] [address] [place] [address] [place] [address] [place] [address] [place] [address] HMO POS [facility] [place] [address] [place] [address] HMO POS [facility] Care Teams Transition Rn Relationship Specialty Start Date End Date Lotus Peraza MD PCP - General 09/04/17 Additional Source Comments The information contained in this document represents components of the legal health record. It is not the complete legal health record.[facility]
--- OUTSIDE RECORDS SUMMARY | 2025-10-14 18:39 | XMS_ITS | Clinical Summary ---
Author Organization [address] [place] [address] [place] [id number] Phone Care Team Providers Care Doll Eye Setter Name Role Phone Lotus Freed MD Primary Care Provider [phone] Allergies Active Allergy Reactions Criticality Noted Date [...] 09/01/2016 Hypercholesteremia 09/01/2016 Urinary incontinence 09/01/2016 Immunizations Immunization Administration Dates Next Due Influenza trivalent, with pr eservative (Fluzone; Afluria) 6mo and older 07/29/2019 Surgical History Surgery Date Site/Laterality Comments OTHER SURGICAL HISTORY PROCEDURE: CT ANTERIOR COLPORRAPHY RPR CYSTOCELE W/CYSTO; COMMENT: x 2 OOPHORECTOMY PROCEDURE: HISTORICAL OOPHORECTOMY OTHER SURGICAL HISTORY PROCEDURE: CT REPAIR RECTOCELE SEPARATE PROCEDURE OTHER SURGICAL HISTORY [...] Years Used Date Smoking Tobacco: Former Cigarettes 0 Q uit: 09/01/2008 Smokeless Tobacco: Never Alcohol [...] Years (1 of 2 - PCV) 1975 RSV Immunization Adult Patients (1 - Risk 50-74 years 1-dose series) 2006 Zoster Vaccines (1 of 2) 2006 Breast Cancer Screening 05/13/2021 05/13/20 19, 03/17/2018, 03/06/2017 Colorectal Cancer Screening: Colonoscopy 04/20/2022 04/20/2012 Depression Screening 11/20/2024 Cholesterol Screening (Lipid Panel) 12/17/2024 10/03/2019 Falls Risk Assessment 12/17/2024 Osteoporosis Screening (Bone Density Screening) 12/17/2024 Social Influencers of Health Screening 12/17/2024 COVID-19 Vaccine ( season) 2025 10/28/2021, 02/26/2021, 02/04/2021 Influenza Vaccine (#1) 2025 , 07/29/2019, 08/28/2018, Additional history exists DTaP,Tdap,and Td [...] reviewed with CAD and compared to previous. The breasts are composed of fatty and fibroglandular tissue. No suspicious mass, architectural distortion or suspicious calcifications [...] Recently Relevant to Health Maintenance Insurance MEDICARE [facility] Care Teams Doll Eye Setter Relationship Specialty Start Date End Date Lotus Freed MD PCP - General Endocrinology 12/24/24
--- OUTSIDE RECORDS SUMMARY | 2025-10-14 18:39 | XMS_ITS | Encounter Summary ---
Author Organization [facility] Address [address] [facility] [address] [place] [id number] Phone Care Team Providers Care Yield Loss Inspector Name Role Phone Lotus Peraza MD Primary Care Provider Encounter Details Date Type Department Care Team (Late st Contact Info) Description 06/06/2022 Ancillary Orders [facility] Orth[facility]ics & Sports Medicine [address] [place] [phone] Sakina Roberts MD [address] [place] [address] Orthopedics & Sports Medicine, [place] [address] [email or web address] Social History Tobacco Use Types Packs/Day Years [...] on filedocumented in this encounter Care Teams Yield Loss Inspector Relationship Specialty Start Date End Date Lotus Peraza MD PCP - General 09/04/17 documented as of this encounter Additional Source Comments The information contained in this document represents components of the legal health record. It is not the complete legal health record.[facility]
== END 2025-10-14 15:16 | disposition home or self-care (01) ==
LOC: HO.HCS 14:53
PROVIDERS: PCP Internal Medicine; Visit Provider Internal Medicine
DX: I25.10 Atherosclerotic heart disease of native coronary artery without angina pectoris (principal); I48.0 Paroxysmal atrial fibrillation; I10 Essential (primary) hypertension; I77.810 Thoracic aortic ectasia
CPT/HCPCS: 99214

== ENCOUNTER → 2025-10-21 09:24 | Outpatient (BNV) | payer BC, SELFPAY | PROVIDERS: PCP Internal Medicine; Visit Provider Internal Medicine | DX: I48.0 Paroxysmal atrial fibrillation (principal); R00.2 Palpitations; Z95.818 Presence of other cardiac implants and grafts | CPT/HCPCS: 93298 ==